=== PATIENT | female | born 1970 | race Caucasian/White ===

== ENCOUNTER 2017-06-14 13:06 | Inpatient (IN) | payer OTHER ==
--- NOTE | 2017-06-14 15:58 | C.PDOC ---
History Of Present Illness <Shira Hdz - Last Filed: 06/14/17 18:56> <Chana Nickerson - Last Filed: 06/14/17 20:03> PT WAS WAITING OUTSIDE IN WAITING AREA FOR 2.5 HRS TO BE SEEN. 46 y/o female,with no significant PMHx,presents to the ER complaining of LLQ pain for the past 4 days associated fever and chills, decrease in appetite. Patient reports, has an IUD and went to see her DISTRICT SERVICE MANAGER, Dr. Doris Johnson, today " I thought maybe something is wrong with it". As per pt, acute findings were reported by Dr. Johnson, but sent her to Ed for further evaluation. Otherwise, pt denies recent illness, cold sx, sore throat, cough, CP, SOB, dyspnea, diaphoresis, palpitation, V/D, UTi sx, hematuria, vaginal discharges or bleeding , back pain. Ambulate to ED for evaluation, appears in pain. (Shira Hdz) History Per: Patient History/Exam Limitations: no limitations Current Symptoms Are (Timing): Still Present Severity: Moderate Location Of Pain/Discomfort: LLQ <Shira Hdz - Last Filed: 06/14/17 18:56> <Chana Nickerson - Last Filed: 06/14/17 20:03> Time Seen by Provider: 06/14/17 15:56 Chief Complaint (Nursing): Abdominal Pain Past Medical History Reviewed: Historical Data, Nursing Documentation, Vital Signs - Medical History PMH: No Chronic Diseases Surgical History: Family History: States: No Known Family Hx - Social History Hx Alcohol Use: No Hx Substance Use: No - Immunization History Hx Tetanus Toxoid Vaccination: No Hx Influenza Vaccination: Yes Hx Pneumococcal Vaccination: Yes <Shira Hdz - Last Filed: 06/14/17 18:56> Vital Signs: Last Vital Signs Temp 97.9 F 06/14/17 18:43 Pulse 83 06/14/17 18:43 Resp 18 06/14/17 18:43 BP 105/70 06/14/17 18:43 Pulse Ox 100 06/14/17 18:56 Review Of Systems Except As Marked, All Systems Reviewed And Found Negative. Constitutional: Positive for: Fever, Chills Gastrointestinal: Positive for: Abdominal Pain <Shira Hdz - Last Filed: 06/14/17 18:56> Physical Exam - Physical Exam Appears: Well, Non-toxic, No Acute Distress Skin: Normal Color, Warm, No Rash Head: Normacephalic Eye(s): bilateral: PERRL Ear(s): Bilateral: Normal Nose: No Flaring, No Discharge Oral Mucosa: Moist, No Drooling Throat: No Erythema, No Drooling Neck: Trachea Midline, Supple Chest: Symmetrical Cardiovascular: Rhythm Regular Respiratory: No Decreased Breath Sounds, No Accessory Muscle Use, No Rales, No Rhonchi, No Stridor, No Wheezing Gastrointestinal/Abdominal: Soft, Tenderness (LLQ, mod), No Distention, No Guarding, No Rebound Back: No CVA Tenderness Extremity: Normal ROM, No Deformity, No Swelling Neurological/Psych: Oriented x3, Normal Speech, Normal Motor, Normal Sensation <Shira Hdz - Last Filed: 06/14/17 18:56> ED Course And Treatment - Laboratory Results Result Diagrams: 06/14/17 16:50 06/14/17 16:50 Lab Interpretation: Abnormal Urine POC: Negative O2 Sat by Pulse Oximetry: 100 (RA) Pulse Ox Interpretation: Normal Progress Note: Labs and CT-Abd/Pelv. ordered. Patient given IV fluids, Toradol IV, and Tylenol PO. Pt was OBS in ED for 2 hours and remained stable. Abd: (+ ) mod LLQ tenderness, (-) guaridng, (-) rebound. back: (-) CVA tenderness. Blood work review: CBC- mild leukocytosis with left shift. BMP- mild elevated LFT. UA- normal study. preg (-). Case discussed and sign out to , CT abd/pelvis- pending. <Shira Hdz - Last Filed: 06/14/17 18:56> - Laboratory Results Result Diagrams: 06/14/17 16:50 06/14/17 16:50 <Chana Nickerson - Last Filed: 06/14/17 20:03> Disposition - Disposition Disposition Time: 18:56 <Shira Hdz - Last Filed: 06/14/17 18:56> Discussed With DrRex: Doris A Johnson Doctor Will See Patient In The: Hospital <Chana Nickerson - Last Filed: 06/14/17 20:03> - Disposition Disposition: HOSPITALIZED Condition: FAIR Forms: [facility] ([place]) - Clinical Impression Clinical Impression: Abdominal pain, Fever, Tubo-ovarian abscess - PA / SENIOR ELECTRONICS TECHNICIAN / Resident Statement MD/DO has reviewed & agrees with the documentation as recorded. - Scribe Statement The provider has reviewed the documentation as recorded by the Scribe <Shira Hdz - Last Filed: 06/14/17 18:56> <Chana Nickerson - Last Filed: 06/14/17 20:03> - Scribe Statement Theodore Cast Provider Attestation All medical record entries made by the Scribe were at my direction and personally dictated by me. I have reviewed the chart and agree that the record accurately reflects my personal performance of the history, physical exam, medical decision making, and the department course for this patient. I have also personally directed, reviewed, and agree with the discharge instructions and disposition. (Shira Hdz) Physician Patient Turnover Patient Signed Over To: Chana Nickerson Handoff Comments: P: CT abd/pelvis, re-eval, dispo <Shira Hdz - Last Filed: 06/14/17 18:56>
[2017-06-14] MEDS ORDERED: Sodium Chloride 0.9% 1,000 ML IV ONE (16:20)
[2017-06-14] MEDS ORDERED: Sodium Chloride 0.9% 1,000 ML ONE (16:29)
[2017-06-14 16:32] LABS: HCG,QUALITATIVE URINE NEGATIVE (NEGATIVE)
[2017-06-14 16:41] LABS: SQUAMOUS EPITHIAL < 1 /hpf (0-5); URINE BACTERIA RARE (<OCC); URINE BILIRUBIN NEGATIVE (NEGATIVE); URINE BLOOD NEGATIVE (NEGATIVE); URINE CLARITY Clear (Clear); URINE COLOR Yellow (YELLOW); URINE GLUCOSE (UA) NORMAL (Normal); URINE LEUKOCYTE ESTERASE NEG Leu/uL (Negative); URINE NITRATE NEGATIVE (NEGATIVE); URINE PROTEIN 1+ mg/dL (NEGATIVE); URINE UROBILINOGEN NORMAL mg/dL (0.2-1.0)
[2017-06-14 16:53] LABS: BASO # 0.1 K/uL (0.0-0.2); BASO % 0.4 % (0.0-2.0); EOS # 0.1 K/uL (0.0-0.7); EOS % 0.4 % (0.0-4.0); HEMOGLOBIN 12.1 g/dL (11.0-16.0); LYMPH # 1.7 K/uL (1.0-4.3); LYMPH % 9.2 % (20.0-40.0); MEAN CELL VOLUME 81.4 fL (81.0-99.0); MEAN CORPUSCULAR HEMOGLOBIN 26.7 pg (27.0-31.0); MEAN CORPUSCULAR HGB CONC 32.8 g/dL (33.0-37.0); MEAN PLATELET VOLUME 7.3 fL (7.2-11.7); MONO # 1.2 K/uL (0.0-0.8); MONO % 6.7 % (0.0-10.0); NEUT # 15.1 K/uL (1.8-7.0); NEUT % 83.3 % (50.0-75.0); PLATELET COUNT 525 K/uL (130-400); RBC 4.52 Mil/uL (3.80-5.20); WHITE BLOOD COUNT 18.1 K/uL (4.8-10.8)
[2017-06-14 17:01] LABS: VENOUS BLOOD GAS BASE EXCESS 0.6 mmol/L (0.0-2.0); VENOUS BLOOD GAS PCO2 36 mmHg (40-60); VENOUS BLOOD GAS PO2 34 mm/Hg (30-55); VENOUS BLOOD PH 7.44 (7.32-7.43)
[2017-06-14 17:05] LABS: ALB/GLOB RATIO 0.8 (1.0-2.1); ALBUMIN 3.9 g/dL (3.5-5.0); ALT/SGPT 120 U/L (9-52); AST/SGOT 62 U/L (14-36); BLOOD UREA NITROGEN 8 mg/dL (7-17); CALCIUM 9.2 mg/dl (8.6-10.4); GFR AFRICAN-AMERICAN > 60; GFR NON-AFRICAN AMERICAN > 60; LIPASE 55 U/L (23-300)
[2017-06-14] MEDS ORDERED: Iohexol 300 100 ML IJ ONE (17:47)
[2017-06-14 17:50] LABS: EOSINOPHIL 1 % (0-4); LYMPHOCYTE 12 % (20-40); MONOCYTE 6 % (0-10); NEUTROPHIL 81 % (50-75); TOTAL CELLS COUNTED 100
[2017-06-14 17:51] LABS: PLATELET ESTIMATE INCREASED (NORMAL)
--- NOTE | 2017-06-14 19:45 | CT ---
EXAM: CT Abdomen and Pelvis With Intravenous Contrast EXAM DATE/TIME: Exam ordered 06/14/2017 4:20 PM CLINICAL HISTORY: 46 years old, female; Pain; Abdominal pain; Tenderness; Lower; Additional info: Abd pain TECHNIQUE: Axial computed tomography images of the abdomen and pelvis with intravenous contrast. All CT scans at this facility use one or more dose reduction techniques, viz.: automated exposure control; ma/kV adjustment per patient size (including targeted exams where dose is matched to indication; i.e. head); or iterative reconstruction technique. Coronal and sagittal reformatted images were created and reviewed. CONTRAST: 100 mL of OMNIPAQUE 300 administered intravenously. COMPARISON: No relevant prior studies available. FINDINGS: Lower thorax: No acute findings. ABDOMEN: Liver: Unremarkable. No mass. Gallbladder and bile ducts: Unremarkable. No calcified stones. No ductal dilation. Pancreas: Unremarkable. No mass. No ductal dilation. Spleen: Unremarkable. No splenomegaly. Adrenals: Unremarkable. No mass. Kidneys and ureters: Unremarkable. No solid mass. No hydronephrosis. Stomach and bowel: Unremarkable. No obstruction. No mucosal thickening. Appendix: No findings to suggest acute appendicitis. PELVIS: Bladder: Unremarkable. No mass. Reproductive: There is a multiloculated cystic mass noted in the left adnexa measuring 6.5 x 4.6 by 4.3 cm. There is mild stranding of the fat along the left lateral margin of the mass. The right ovary measures 2.6 x 1.4 by 2.1 cm. ABDOMEN and PELVIS: Intraperitoneal space: Unremarkable. No free air. No significant fluid collection. Bones/joints: No acute fracture. No dislocation. Soft tissues: There is an umbilical hernia measuring 2 cm containing fat. Vasculature: Unremarkable. No abdominal aortic aneurysm. Lymph nodes: Unremarkable. No enlarged lymph nodes. Tubes, lines and devices: There is an intrauterine device in place. IMPRESSION: 1. Multiloculated cystic mass noted within the left adnexa with a maximum diameter 6.5 cm. Differential diagnostic considerations include complex functional cyst, tubo-ovarian abscess or cystic neoplasm. Pelvic ultrasound might be considered for more definitive characterization. 2. Small umbilical hernia.
[2017-06-14] MEDS ORDERED: metroNIDAZOLE IV 500 mg/100 ml 500 MG/100 ML BAG IVPB STA (19:58)
[2017-06-14] MEDS ORDERED: metroNIDAZOLE IV 500 mg/100 ml 500 MG/100 ML BAG ONE (20:27)
--- NOTE | 2017-06-14 20:28 | CP.PCM.HP ---
History of Present Illness - History of Present Illness History of Present Illness: 46 y/o P2 LMP 04/28/2017 with retained IUD with severe abdominal/pelvic pain since Wednesday. Pt reports was seen by PCP and subsequently started on Cipro adn reports no improvement. pot was seen outpatient in my offier earlier today, first time with complaints of mainly LLQ abdomina pelvic pain, constant in nature, non raditaing with on going fevers x 2 weeks. Pt reports she felt flu like symptoms and said fever would come and go. Pt denies any chills, nause, vomiting, CP, SOB< dysuira, urgency, freuqency, AUB< vaginal dsicharge, itching , odor, constipation, diarrhea, sick contacts, weight gain or loss. Pt reports normal appetite. Upon in office examination, IUD noted to be in place with exam findings concerning for PID/TOA vs divertilciits. Upon ER Evaluation with noted to be febrile 102, WBC [address] scan consistent with 6.5cm multloculated cyst. Pt reports pain in LLQ improved with IV painmedicaion given in ER. 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, irreugualr, IUD x 5-6 years (pt unsure), bib hx of abnromal pap, fibroids, ovarian cyst, STI ge of Menarche 11/q 30 dayx 4-5 day duration PMH: denies PSH: CxS x2 MEDS: Ciprofloxacin SHX: Negative etoh/tobacco/Drugs NKDA Present on Admission - Present on Admission Any Indicators Present on Admission: No Review of Systems - Review of Systems All systems: reviewed and no additional remarkable complaints except Review of Systems: fever, abdominal pain see HPI Past Patient History - Past Medical History & Family History Past Medical History?: No Past Family History: Reviewed and not pertinent - Past Social History Smoking Status: Never Smoked Chewing Tobacco Use: No Cigar Use: No Alcohol: None - PSYCHIATRIC Hx Substance Use: No - SURGICAL HISTORY Hx Surgeries: Yes Hx Section: Yes Meds Allergies/Adverse Reactions: Allergies Allergy/AdvReac Type Severity Reaction Status Date / Time No Known Allergies Allergy Verified 06/14/17 14:56 Physical Exam - Constitutional Appears: Well, Non-toxic - Head Exam Head Exam: ATRAUMATIC, NORMAL INSPECTION - Eye Exam Eye Exam: EOMI, Normal appearance Pupil Exam: NORMAL ACCOMODATION - ENT Exam ENT Exam: Mucous Membranes Moist, Normal Exam - Neck Exam Neck exam: Positive for: Normal Inspection - Respiratory Exam Respiratory Exam: Clear to Auscultation Bilateral, NORMAL BREATHING PATTERN - Cardiovascular Exam Cardiovascular Exam: REGULAR RHYTHM, +S1, +S2 - GI/Abdominal Exam GI & Abdominal Exam: Normal Bowel Sounds, Soft Additional comments: TTP LLQ, no guarding no rigidity, no reboudn tenderness - Exam Additional comments: External Genitalia: no gross abnormalities Urethra: grossly normal Bladder; Non tender Vagina: no gross discharbe, no blood Cervix multiparous, short IUD string <0.5 cm from cervicl os, +CMT Uteurs; limited exam, non tender Adnexa: +adnexal tenderness b/l Anus/Perienum Grossly normal Results - Vital Signs Recent Vital Signs: Last Vital Signs Temp 97.9 F 06/14/17 18:43 Pulse 83 06/14/17 18:43 Resp 18 06/14/17 18:43 BP 105/70 06/14/17 18:43 Pulse Ox 100 06/14/17 18:56 Temp 102+ on intial er Evaluation s/p 975mg po Tyeonlono - Labs Result Diagrams: 06/14/17 16:50 06/14/17 16:50 Labs: Laboratory Results - last 24 hr 06/14/17 06/14/17 06/14/17 16:27 16:50 16:50 WBC 18.1 H RBC 4.52 Hgb 12.1 Hct 36.8 MCV 81.4 MCH 26.7 L MCHC 32.8 L RDW 13.0 Plt Count 525 H MPV 7.3 Neut % (Auto) 83.3 H Lymph % (Auto) 9.2 L [place] % (Auto) 6.7 Eos % (Auto) 0.4 Baso % (Auto) 0.4 Neut # (Auto) 15.1 H Lymph # (Auto) 1.7 [place] # (Auto) 1.2 H Eos # (Auto) 0.1 Baso # (Auto) 0.1 Neutrophils % (Manual) 81 H Lymphocytes % (Manual) 12 L Monocytes % (Manual) 6 Eosinophils % (Manual) 1 Platelet Estimate Increased H pO2 VBG pH VBG pCO2 VBG HCO3 VBG Total CO2 VBG O2 Sat (Calc) VBG Base Excess VBG Potassium Sodium 137 Chloride 96 L Glucose Lactate Potassium 4.2 Carbon Dioxide 25 Anion Gap 21 H BUN 8 Creatinine 0.7 Est GFR ( Amer) > 60 Est GFR (Non-Af Amer) > 60 Random Glucose 104 Calcium 9.2 Total Bilirubin 0.6 AST 62 H ALT 120 H Alkaline Phosphatase 162 H Total Protein 8.7 H Albumin 3.9 Globulin 4.9 H Albumin/Globulin Ratio 0.8 L Lipase 55 Venous Blood Potassium Urine Color Yellow Urine Clarity Clear Urine pH 7.0 Ur Specific Lynch 1.011 Urine Protein 1+ H Urine Glucose (UA) Normal Urine Ketones Negative Urine Blood Negative Urine Nitrate Negative Urine Bilirubin Negative Urine Urobilinogen Normal Ur Leukocyte Esterase Neg Urine WBC (Auto) 1 Urine RBC (Auto) 3 Ur Squamous Epith Cells < 1 Urine Bacteria Rare Urine HCG, Qual Negative Influenza Typ A,B (EIA) 06/14/17 06/14/17 16:50 16:51 WBC RBC Hgb Hct MCV MCH MCHC RDW Plt Count MPV Neut % (Auto) Lymph % (Auto) [place] % (Auto) Eos % (Auto) Baso % (Auto) Neut # (Auto) Lymph # (Auto) [place] # (Auto) Eos # (Auto) Baso # (Auto) Neutrophils % (Manual) Lymphocytes % (Manual) Monocytes % (Manual) Eosinophils % (Manual) Platelet Estimate pO2 34 VBG pH 7.44 H VBG pCO2 36 L VBG HCO3 24.6 VBG Total CO2 25.6 VBG O2 Sat (Calc) 68.9 H VBG Base Excess 0.6 VBG Potassium 4.0 Sodium 136.0 Chloride 105.0 Glucose 103 Lactate 1.0 Potassium Carbon Dioxide Anion Gap BUN Creatinine Est GFR ( Amer) Est GFR (Non-Af Amer) Random Glucose Calcium Total Bilirubin AST ALT Alkaline Phosphatase Total Protein Albumin Globulin Albumin/Globulin Ratio Lipase Venous Blood Potassium 4.0 Urine Color Urine Clarity Urine pH Ur Specific Lynch Urine Protein Urine Glucose (UA) Urine Ketones Urine Blood Urine Nitrate Urine Bilirubin Urine Urobilinogen Ur Leukocyte Esterase Urine WBC (Auto) Urine RBC (Auto) Ur Squamous Epith Cells Urine Bacteria Urine HCG, Qual Influenza Typ A,B (EIA) Negative for flu a/b - Imaging and Cardiology CT scan - pelvis Status: Report reviewed by me Additional comment: 6.5 cm adnexal multiloculated cyst Assessment & Plan (1) Abdominal pain Status: Acute (2) Fever Status: Acute (3) Tubo-ovarian abscess Assessment and Plan: 1. Admit to STUFFING MACHINE OPERATOR: Dr Doris Johnson 2. Diet: NPO after midnight, IVH: LR @ 125cch/r 3. TOA by CT Scan: For Pelvic TVUS, Gentamicin 80mg IV q 8 hour, Clindamycin 900mg IV q 8 hours 4. Labs: CBC, CMP, PT/INR, ABO, CRP, ESR 5. STI Panel: GC, CT, Trichomonas, Hepatitis B/C, HIV, RPR 6. Blood/Urine Cx, Flu negative 7. IR Consult: Possible IR guided drainage 8. Pain Management: Toradol 30mg IV q 6hr 9. VSS per protocol 10. DVT Prophylaxis LE scds 11. Activity: with assistance as needed Status: Acute
--- NOTE | 2017-06-14 22:11 | US ---
EXAM: US Pelvis Complete, Transabdominal and transvaginal EXAM DATE/TIME: Exam ordered 06/14/2017 8:12 PM CLINICAL HISTORY: 46 years old, female; Pain; Pelvic pain and other: Fever; Additional info: R/O toa vs ovarian cyst TECHNIQUE: Real-time transabdominal and transvaginal pelvic ultrasound (complete) with image documentation. COMPARISON: CT - ABD PELVIS IV CONTRAST ONLY 2017-06-14 19:10 FINDINGS: Uterus/cervix: The uterus measures 11 x 4.1 x 5 point 4 cm. and intrauterine device is present. The uterus measures 8.6 x 5.5 x 4.6 cm. An IUD is noted within the uterus. There is an anterior intramural fibroid measuring 9 mm in greatest diameter. Normal endometrial stripe thickness. Right ovary: Transabdominally, The right ovary is not seen as a separate structure. Transvaginally, The right ovary measures 3.1 x 2.2 x 3 cm and contains several subcentimeter follicles. Blood flow seen in the right ovary color Doppler examination. Left ovary: Transabdominally, The left ovary measures 6.3 x 4.6 x 6 cm. Blood flow is seen in left ovary on color Doppler examination. The ovary is heterogeneous in appearance with hypoechoic areas which correspond to the cystic changes suggested on CT scan. Transvaginally, There is a complex cystic mass noted within the left adnexa/left ovary measuring 6.7 x 4.3 x 5.2 cm.. MMultiple hypoechoic areas are noted within the mass. Vascularity is noted within the septations of the mass. The Dominant cystic component within the mass measures 3.1 x 3.2 x 3.1 cm.. The hypoechoic areas within the ovary contain a background of low level echoes with multiple punctate echogenic foci contained within. Is no shadowing. A calcification is noted within the ovarian parenchyma. On the cine images of the left ovary, there is marked through transmission of sound Free fluid: There is no free fluid fluid in the right upper quadrant. A trace amount of free fluid is seen in the posterior cul-de-sac. Bladder: Unremarkable as visualized. Wall is normal thickness for degree of distention. IMPRESSION: 1. Multiloculated cystic left ovarian mass. Differential diagnostic considerations include dermoid, endometrioma, mucinous cystadenoma. The appearance is not typical for tubo-ovarian abscess. If additional characterization is a required, an MRI would be helpful.
[2017-06-15 07:47] LABS: INR 1.3; PROTHROMBIN TIME 14.8 SECONDS (9.7-12.2)
[2017-06-15 08:08] LABS: ALB/GLOB RATIO 0.9 (1.0-2.1); ALBUMIN 3.3 g/dL (3.5-5.0); ALT/SGPT 92 U/L (9-52); AST/SGOT 41 U/L (14-36); BLOOD UREA NITROGEN 6 mg/dL (7-17); CALCIUM 8.5 mg/dl (8.6-10.4); GFR AFRICAN-AMERICAN > 60; GFR NON-AFRICAN AMERICAN > 60
[2017-06-15 08:20] LABS: HEPATITIS B SURFACE AG Negative (NEGATIVE)
[2017-06-15 08:26] LABS: HEPATITIS A IGM NEGATIVE (NEGATIVE); HEPATITIS B CORE AB NEGATIVE (NEGATIVE)
[2017-06-15 08:37] LABS: HEPATITIS C ANTIBODY NEGATIVE (NEGATIVE)
--- NOTE | 2017-06-15 09:18 | CP.PCM.PN ---
<Mattie Goodwin - Last Filed: 06/15/17 09:39> Subjective - Date & Time of Evaluation Date of Evaluation: 06/15/17 Time of Evaluation: 09:16 - Subjective Subjective: ELECTRICAL ENGINEERING DIRECTOR progress note: Patient seen and examined at bedside. Per nursing, no acute events overnight. Patient states that she is still having mild left sided pelvic that is improved from yesterday. Patient states that she feels cold. Offers no other complaints at this time. Denies headaches, dizziness, chest pain, palpitations, shortness of breath, urinary symptoms. Objective - Vital Signs/Intake and Output Vital Signs (last 24 hours): Temp Pulse Resp BP Pulse Ox 97.2 F L 97 H 20 107/67 100 06/15/17 00:03 06/15/17 00:03 06/15/17 00:03 06/15/17 00:03 06/15/17 00:03 - Medications Medications: Current Medications Gentamicin Sulfate 80 mg/ (Sodium Chloride) 102 mls @ 100 mls/hr IVPB Q8H [facility] Last Admin: 06/15/17 03:56 Dose: 100 mls/hr Clindamycin Phosphate 900 mg/ (Sodium Chloride) 106 mls @ 100 mls/hr IVPB Q8H [facility] Last Admin: 06/15/17 04:40 Dose: 100 mls/hr Ketorolac Tromethamine (Toradol) 30 mg IVP Q6H PRN PRN Reason: Pain, severe (8-10) Last Admin: 06/15/17 00:53 Dose: 30 mg - Labs Labs: 06/14/17 16:50 06/15/17 07:24 PT 14.8 SECONDS (9.7-12.2) H 06/15/17 07:24 INR 1.3 06/15/17 07:24 APTT 32 SECONDS (21-34) 06/15/17 07:24 - Constitutional Appears: Well, No Acute Distress - Head Exam Head Exam: ATRAUMATIC, NORMAL INSPECTION, NORMOCEPHALIC - Eye Exam Eye Exam: EOMI, Normal appearance - ENT Exam ENT Exam: Mucous Membranes Moist - Neck Exam Neck Exam: Full ROM - Respiratory Exam Respiratory Exam: NORMAL BREATHING PATTERN - Cardiovascular Exam Cardiovascular Exam: REGULAR RHYTHM - GI/Abdominal Exam GI & Abdominal Exam: Soft, Tenderness (Left sided pelvic tenderness) - Extremities Exam Extremities Exam: Full ROM, Normal Inspection - Back Exam Back Exam: NORMAL INSPECTION - Neurological Exam Neurological Exam: Alert, Awake, CN II-XII Intact, Normal Gait, Oriented x3 - Psychiatric Exam Psychiatric exam: Normal Affect, Normal Mood - Skin Skin Exam: Dry, Normal Color, Warm Assessment and Plan (1) Tubo-ovarian abscess Assessment & Plan: 1. Patient condition is stable 2. Last temp was 100.8, Tylenol 975 PO STAT 3. Leukocytosis: WBC 18.1 on admission, F/U am CBC 4. Transvaginal US showed Multiloculated cystic left ovarian mass (see full report) 5. IR consulted for possible drainage, Discussed case with Dr Prado, no IR intervention at this time 6. Antibiotics: Gentamicin 80mg IV Q8H and Clindamycin 900 IV Q8H 7. Plan to continue antibiotics for 24-48 hours and monitor patient clinically at this time 8. Pain control: Toradol 30mg IVP Q6H prn 9. Will place on regular diet 10. Tranaminitis: LFTs still mildly elevated but trending down; Hepatitis panel negative 11. F/U HIV, RPR, GC/CT, Blood cultures, urine cultures 12. Plan discussed with Dr Alex Goodwin DO PGY-1 Status: Acute (2) Abdominal pain Status: Acute (3) Fever Status: Acute <Doris Johnson - Last Filed: 06/15/17 17:28> Objective - Vital Signs/Intake and Output Vital Signs (last 24 hours): Temp Pulse Resp BP Pulse Ox 101.0 F H 92 H 18 126/66 99 06/15/17 16:09 06/15/17 15:47 06/15/17 15:47 06/15/17 15:47 06/15/17 15:47 - Medications Medications: Current Medications Acetaminophen (Tylenol 325mg Tab) 650 mg PO Q6 PRN PRN Reason: Fever >100.4 F Last Admin: 06/15/17 16:18 Dose: 650 mg Lactated Ringer's (Lactated Ringer's) 1,000 mls @ 100 mls/hr IV .Q10H DANIEL Piperacillin Sod/Tazobactam (Sod 3.375 gm/ Sodium Chloride) 100 mls @ 200 mls/ hr IVPB Q6H DANIEL Ketorolac Tromethamine (Toradol) 30 mg IVP Q6H PRN PRN Reason: Pain, severe (8-10) Last Admin: 06/15/17 00:53 Dose: 30 mg - Labs Labs: 06/15/17 11:32 06/15/17 07:24 PT 14.8 SECONDS (9.7-12.2) H 06/15/17 07:24 INR 1.3 06/15/17 07:24 APTT 32 SECONDS (21-34) 06/15/17 07:24 Assessment and Plan (1) Abdominal pain Status: Acute (2) Fever Status: Acute (3) Tubo-ovarian abscess Assessment & Plan: agree with above pt seen and examined Febrile 16:00 101 pt reprots pain well controlled but returns with fever, denies any nause, vomiting, toelrated regulard diet, ambuating denies any cp, sob, cough Labs: WBC: 18-->17 s/p IR Consult: non candidate for drainage Hepatitic panel negative, LFTS imrpoving Tyenol prn fever Change Antibiotcs to Hilary, For ID Consult Pt advised possibel OR intervention if no suqsuebent imrpovement For CXR f/u Blood / urine cx Status: Acute
[2017-06-15 11:41] LABS: BASO # 0.1 K/uL (0.0-0.2); BASO % 0.5 % (0.0-2.0); EOS # 0.1 K/uL (0.0-0.7); EOS % 0.6 % (0.0-4.0); HEMOGLOBIN 10.5 g/dL (11.0-16.0); LYMPH # 1.6 K/uL (1.0-4.3); LYMPH % 9.1 % (20.0-40.0); MEAN CELL VOLUME 82.3 fL (81.0-99.0); MEAN CORPUSCULAR HEMOGLOBIN 27.8 pg (27.0-31.0); MEAN CORPUSCULAR HGB CONC 33.8 g/dL (33.0-37.0); MEAN PLATELET VOLUME 7.5 fL (7.2-11.7); MONO # 1.3 K/uL (0.0-0.8); MONO % 7.5 % (0.0-10.0); NEUT % 82.3 % (50.0-75.0); PLATELET COUNT 434 K/uL (130-400); RBC 3.79 Mil/uL (3.80-5.20); RED CELL DISTRIBUTION WIDTH 13.1 % (11.5-14.5)
[2017-06-15 12:16] LABS: BANDS 14 % (0-2); EOSINOPHIL 1 % (0-4); LYMPHOCYTE 8 % (20-40); MONOCYTE 4 % (0-10); NEUTROPHIL 73 % (50-75); TOTAL CELLS COUNTED 100
[2017-06-15 12:17] LABS: PLATELET ESTIMATE SLIGHTLY INCREASED (NORMAL)
--- NOTE | 2017-06-15 18:27 | RAD ---
HISTORY: cough COMPARISON: None available. TECHNIQUE: Chest, one view. FINDINGS: Examination limited by habitus. LUNGS: No focal consolidation. Probable tiny calcified granuloma, right lung base. Please note that chest x-ray has limited sensitivity for the detection of pulmonary masses. PLEURA: No significant pleural effusion identified. No definite pneumothorax . CARDIOVASCULAR: Heart size appears within normal limits. OSSEOUS STRUCTURES: No acute osseous abnormality identified. VISUALIZED UPPER ABDOMEN: Mild elevation of the right hemidiaphragm. OTHER FINDINGS: None. IMPRESSION: No focal consolidation identified.
[2017-06-15] MEDS: Piperacill/Tazo 4.5gm in Dex 4.5 GM/100 ML BAG IVPB SCH (18:56)
[2017-06-16] MEDS: Piperacill/Tazo 4.5gm in Dex 4.5 GM/100 ML BAG IVPB SCH ×2 (03:05→11:45)
[2017-06-16] MEDS: Lactated Ringer's 1,000 ML IV SCH ×2 (03:06→14:28)
--- NOTE | 2017-06-16 08:13 | CP.PCM.PN ---
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 Patient spiked a 102.2 fever this morning. She states that the abdominal pain that she had prior to arrival is starting to come back. Pain is located in the LLQ, left pelvic area. At this time, pain scale is 6/10. Offers no other complaints at this time. Denies headaches, dizziness, cp, palpitations, sob, urinary symptoms. Objective - Vital Signs/Intake and Output Vital Signs (last 24 hours): Temp Pulse Resp BP Pulse Ox 100.2 F H 86 20 97/63 L 98 06/16/17 03:30 06/16/17 03:30 06/16/17 03:30 06/16/17 00:00 06/16/17 00:00 - Medications Medications: Current Medications Acetaminophen (Tylenol 325mg Tab) 650 mg PO Q6 PRN PRN Reason: Fever >100.4 F Last Admin: 06/15/17 22:19 Dose: 650 mg Lactated Ringer's (Lactated Ringer's) 1,000 mls @ 100 mls/hr IV .Q10H [facility] Last Admin: 06/16/17 03:06 Dose: 100 mls/hr Piperacillin Sod/Tazobactam Sod (Zosyn 4.5 Gm Iv Premix) 4.5 gm in 100 mls @ 100 mls/hr IVPB Q8H [facility] Last Admin: 06/16/17 03:05 Dose: 100 mls/hr Ketorolac Tromethamine (Toradol) 30 mg IVP Q6H PRN PRN Reason: Pain, severe (8-10) Last Admin: 06/15/17 00:53 Dose: 30 mg - Labs Labs: 06/15/17 11:32 06/15/17 07:24 PT 14.8 SECONDS (9.7-12.2) H 06/15/17 07:24 INR 1.3 06/15/17 07:24 APTT 32 SECONDS (21-34) 06/15/17 07:24 - Constitutional Appears: No Acute Distress - Head Exam Head Exam: ATRAUMATIC, NORMAL INSPECTION, NORMOCEPHALIC - Eye Exam Eye Exam: EOMI, Normal appearance - ENT Exam ENT Exam: Mucous Membranes Moist - Neck Exam Neck Exam: Full ROM - Respiratory Exam Respiratory Exam: NORMAL BREATHING PATTERN - Cardiovascular Exam Cardiovascular Exam: REGULAR RHYTHM - GI/Abdominal Exam GI & Abdominal Exam: Soft, Tenderness (LLQ tenderness) - Extremities Exam Extremities Exam: Normal Inspection - Neurological Exam Neurological Exam: Alert, Awake, Oriented x3 - Psychiatric Exam Psychiatric exam: Normal Affect, Normal Mood - Skin Skin Exam: Dry, Normal Color, Warm Assessment and Plan (1) Tubo-ovarian abscess Assessment & Plan: -Last temp was 102.2, tylenol was given -Leukocytosis: 17.0 -> 17.4 -Antibiotics: Zosyn 4.75mg IV Q8H -Infectious Disease consulted, daron Taylor -CXR showed no focal consolidation -Blood cultures negative for 24 hours, urine cultures negative - Status: Acute (2) Abdominal pain Status: Acute (3) Fever Status: Acute <Doris Johnson - Last Filed: 06/16/17 09:07> Objective - Vital Signs/Intake and Output Vital Signs (last 24 hours): Temp Pulse Resp BP Pulse Ox 102.2 F H 86 20 97/63 L 98 06/16/17 08:00 06/16/17 03:30 06/16/17 03:30 06/16/17 00:00 06/16/17 00:00 - Medications Medications: Current Medications Acetaminophen (Tylenol 325mg Tab) 650 mg PO Q6 PRN PRN Reason: Fever >100.4 F Last Admin: 06/16/17 08:00 Dose: 650 mg Lactated Ringer's (Lactated Ringer's) 1,000 mls @ 100 mls/hr IV .Q10H [facility] Last Admin: 06/16/17 03:06 Dose: 100 mls/hr Piperacillin Sod/Tazobactam Sod (Zosyn 4.5 Gm Iv Premix) 4.5 gm in 100 mls @ 100 mls/hr IVPB Q8H [facility] Last Admin: 06/16/17 03:05 Dose: 100 mls/hr Ketorolac Tromethamine (Toradol) 30 mg IVP Q6H PRN PRN Reason: Pain, severe (8-10) Last Admin: 02/27/18 00:53 Dose: 30 mg - Labs Labs: 06/16/17 08:35 06/15/17 07:24 PT 14.8 SECONDS (9.7-12.2) H 06/15/17 07:24 INR 1.3 06/15/17 07:24 APTT 32 SECONDS (21-34) 06/15/17 07:24 Assessment and Plan (1) Abdominal pain Status: Acute (2) Fever Status: Acute (3) Tubo-ovarian abscess Assessment & Plan: agreewith above pt seen and evaluated with spiking temperatue despite changing IV antibiotics pt with LLQ pain on and off , improves with IV pain medicaion Blood/Urine Cx Negative CXR negative Plan ID Consult Pending Possible OR exploration AM labs Tyenol prn fever Pain Managment Status: Acute
[2017-06-16 08:46] LABS: BASO # 0.1 K/uL (0.0-0.2); BASO % 0.6 % (0.0-2.0); EOS # 0.1 K/uL (0.0-0.7); EOS % 0.4 % (0.0-4.0); HEMOGLOBIN 12.2 g/dL (11.0-16.0); LYMPH # 1.9 K/uL (1.0-4.3); LYMPH % 10.7 % (20.0-40.0); MEAN CELL VOLUME 81.2 fL (81.0-99.0); MEAN CORPUSCULAR HEMOGLOBIN 27.2 pg (27.0-31.0); MEAN CORPUSCULAR HGB CONC 33.4 g/dL (33.0-37.0); MEAN PLATELET VOLUME 7.4 fL (7.2-11.7); MONO # 1.2 K/uL (0.0-0.8); MONO % 6.7 % (0.0-10.0); NEUT # 14.2 K/uL (1.8-7.0); NEUT % 81.6 % (50.0-75.0); RBC 4.49 Mil/uL (3.80-5.20); WHITE BLOOD COUNT 17.4 K/uL (4.8-10.8)
[2017-06-16 09:07] LABS: ALB/GLOB RATIO 0.8 (1.0-2.1); ALBUMIN 3.4 g/dL (3.5-5.0); ALT/SGPT 79 U/L (9-52); AST/SGOT 31 U/L (14-36); BLOOD UREA NITROGEN 4 mg/dL (7-17); CALCIUM 8.7 mg/dl (8.6-10.4); GFR AFRICAN-AMERICAN > 60; GFR NON-AFRICAN AMERICAN > 60
--- NOTE | 2017-06-16 17:33 | CP.PCM.CON ---
History of Present Illness - History of Present Illness History of Present Illness: 46 y/o P2 LMP 04/28/2017 with retained IUD with severe abdominal/pelvic pain since Antolin. She was seen by PCP Dr Roche and subsequently started on Cipro but reports no improvement. Patient was then referred to her [employer]ORER with complaints of mainly LLQ abdominal pelvic pain with on going fevers x 2 weeks. Pt reports she felt flu like symptoms and said fever would come and go. Upon ER Evaluation with noted to be febrile 102, WBC [address] scan consistent with 6.5cm multloculated cyst. 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, irreugualar, IUD x 5-6 years (pt unsure), PMH: denies PSH: CxS x2 SHX: Negative etoh/tobacco/Drugs 2 children all reported healthy / monogomous relationship NKDA Review of Systems - Constitutional Constitutional: As Per HPI, Anorexia, Chills, Fever - EENT Eyes: absent: As Per HPI, Blind Spots, Blurred Vision, Change in Vision, Decreased Night Vision, Diplopia, Discharge, Dry Eye, Exophthalmos, Floaters, Irritation, Itchy Eyes, Loss of Peripheral Vision, Pain, Photophobia, Requires Corrective Lenses, Sees Flashes, Spots in Vision, Tunnel Vision, Other Visual Disturbances, Loss of Vision, Other Ears: absent: As Per HPI, Decreased Hearing, Ear Discharge, Ear Pain, Tinnitus, Abnormal Hearing, Disequilibrium, Dizziness, Other Nose/Mouth/Throat: absent: As Per HPI, Epistaxis, Nasal Congestion, Nasal Discharge, Nasal Obstruction, Nasal Trauma, Nose Pain, Post Nasal Drip, Sinus Pain, Sinus Pressure, Bleeding Gums, Change in Voice, Dental Pain, Dry Mouth, Dysphagia, Halitosis, Hoarsness, Lip Swelling, Mouth Lesions, Mouth Pain, Odynophagia, Sore Throat, Throat Swelling, Tongue Swelling, Facial Pain, Neck Pain, Neck Mass, Other - Breasts Breasts: absent: As Per HPI, Change in Shape, Mass, Pain, Nipple Discharge, Nipple Inversion, Skin Changes, Swelling, Other - Cardiovascular Cardiovascular: absent: As Per HPI, Acrocyanosis, Chest Pain, Chest Pain at Rest , Chest Pain with Activity, Claudication, Diaphoresis, Dyspnea, Dyspnea on Exertion, Edema, Irregular Heart Rhythm, Pain Radiating to Arm/Neck/Jaw, Leg Edema, Leg Ulcers, Lightheadedness, Orthopnea, Palpitations, Paroxysmal Nocturnal Dyspnea, Pedal Edema, Radiating Pain, Rapid Heart Rate, Slow Heart Rate, Syncope, Other - Gastrointestinal Gastrointestinal: absent: As Per HPI, Abdominal Pain, Belching, Bloating, Change in Bowel Habits, Change in Stool Character, Coffee Ground Emesis, Constipation, Cramping, Diarrhea, Dyspepsia, Dysphagia, Early Satiety, Excessive Flatus, Fecal Incontinence, Heartburn, Hematemesis, Hematochezia, Loose Stools, Melena, Nausea, Odynophagia, Temesmus, Vomiting, Other - Genitourinary Genitourinary: As Per HPI - Reproductive: Female Reproductive:Female: As Per HPI - Menstruation Menstruation: As Per HPI - Musculoskeletal Musculoskeletal: absent: As Per HPI, Abnormal Gait, Arthralgias, Atrophy, Back Pain, Deformity, Joint Swelling, Limited Range of Motion, Loss of Height, Muscle Cramps, Muscle Weakness, Myalgias, Neck Pain, Numbness, Radiating Pain into Limb, Stiffness, Tingling, Other - Integumentary Integumentary: absent: As Per HPI, Acne, Alopecia, Bleeding Lesions, Change in Hair, Change in Nails, Change in Pigmentation, Changing Lesions, Dry Skin, Erythema, Furuncle, Hirsutism, Lesions, New Lesions, Non-Healing Lesions, Photosensitivity, Pruritus, Rash, Skin Pain, Skin Ulcer, Sores, Striae, Swelling , Unusual Bruising, Wounds, Jaundice, Other - Neurological Neurological: absent: As Per HPI, Abnormal Gait, Abnormal Hearing, Abnormal Movements, Abnormal Speech, Behavioral Changes, Burning Sensations, Confusion, Convulsions, Disequilibrium, Dizziness, Numbness, Focal Weakness, Frequent Falls , Headaches, Lack of Coordination, Loss of Vision, Memory Loss, Paresthesias, Radicular Pain, Restless Legs, Sensory Deficit, Syncope, Tingling, Tremor, Vertigo, Weakness, Other Visual Disturbances, Other - Psychiatric Psychiatric: absent: As Per HPI, Abnormal Sleep Pattern, Anhedonia, Anxiety, Auditory Hallucinations, Behavioral Changes, Change in Appetite, Change in Libido, Confusion, Depression, Difficulty Concentrating, Hallucinations, Homicidal Ideation, Hopelessness, Irritability, Memory Loss, Mood Swings, Panic Attacks, Paranoia, Suicidal Ideation, Visual Hallucinations, Tactile Hallucinations, Other - Endocrine Endocrine: absent: As Per HPI, Change in Body Appearance, Change in Libido, Cold Intolorance, Deepening of Voice, Excessive Sweating, Fatigue, Flushing, Heat Intolorance, Increase in Ring/Shoe/Hat Size, Palpitations, Polydipsia, Polyphagia, Polyuria, Other - Hematologic/Lymphatic Hematologic: absent: As Per HPI, Easy Bleeding, Easy Bruising, Lymphadenopathy, Other Past Patient History - Past Medical History & Family History Past Medical History?: No - Past Social History Smoking Status: Never Smoked Chewing Tobacco Use: No Cigar Use: No Alcohol: None - MUSCULOSKELETAL/RHEUMATOLOGICAL Hx Falls: No - PSYCHIATRIC Hx Substance Use: No - SURGICAL HISTORY Hx Surgeries: Yes Hx Section: Yes Meds Allergies/Adverse Reactions: Allergies Allergy/AdvReac Type Severity Reaction Status Date / Time No Known Allergies Allergy Verified 06/14/17 14:56 - Medications Medications: Current Medications Acetaminophen (Tylenol 325mg Tab) 650 mg PO Q6 PRN PRN Reason: Fever >100.4 F Last Admin: 06/16/17 16:10 Dose: 650 mg Lactated Ringer's (Lactated Ringer's) 1,000 mls @ 100 mls/hr IV .Q10H [facility] Last Admin: 06/16/17 14:28 Dose: 100 mls/hr Piperacillin Sod/Tazobactam Sod (Zosyn 4.5 Gm Iv Premix) 4.5 gm in 100 mls @ 100 mls/hr IVPB Q8H [facility] Last Admin: 06/16/17 11:45 Dose: 100 mls/hr Ketorolac Tromethamine (Toradol) 30 mg IVP Q6H PRN PRN Reason: Pain, severe (8-10) Last Admin: 06/16/17 16:17 Dose: 30 mg Physical Exam - Constitutional Appears: Non-toxic, Chronically Ill - Head Exam Head Exam: NORMOCEPHALIC - Eye Exam Eye Exam: PERRL. absent: Scleral icterus - ENT Exam ENT Exam: Mucous Membranes Dry - Neck Exam Neck exam: Negative for: Lymphadenopathy - Respiratory Exam Respiratory Exam: Decreased Breath Sounds, Clear to Auscultation Bilateral - Cardiovascular Exam Cardiovascular Exam: REGULAR RHYTHM, +S1, +S2 - GI/Abdominal Exam GI & Abdominal Exam: Diminished Bowel Sounds, Distended, Guarding, Soft, Tenderness. absent: Organomegaly, Pulsatile Mass, Rebound, Rigid - Rectal Exam Rectal Exam: Deferred - Exam Exam: NORMAL INSPECTION - Extremities Exam Extremities exam: Negative for: pedal edema - Back Exam Back exam: absent: CVA tenderness (L), CVA tenderness (R) - Neurological Exam Neurological exam: Alert, CN II-XII Intact, Oriented x3, Reflexes Normal - Psychiatric Exam Psychiatric exam: Normal Mood - Skin Skin Exam: Dry, Intact Results - Vital Signs Recent Vital Signs: Last Vital Signs Temp 101.2 F H 06/16/17 16:10 Pulse 86 06/16/17 03:30 Resp 20 06/16/17 03:30 BP 97/63 L 06/16/17 00:00 Pulse Ox 98 06/16/17 00:00 - Labs Result Diagrams: 06/16/17 08:35 06/16/17 08:35 Labs: Laboratory Results - last 24 hr 06/15/17 06/16/17 06/16/17 07:24 08:35 08:35 WBC 17.4 H RBC 4.49 Hgb 12.2 Hct 36.5 MCV 81.2 MCH 27.2 MCHC 33.4 RDW 13.0 Plt Count 488 H MPV 7.4 Neut % (Auto) 81.6 H Lymph % (Auto) 10.7 L Waldo % (Auto) 6.7 Eos % (Auto) 0.4 Baso % (Auto) 0.6 Neut # (Auto) 14.2 H Lymph # (Auto) 1.9 Waldo # (Auto) 1.2 H Eos # (Auto) 0.1 Baso # (Auto) 0.1 Sodium 138 Potassium 4.0 Chloride 99 Carbon Dioxide 25 Anion Gap 18 BUN 4 L Creatinine 0.7 Est GFR ( Amer) > 60 Est GFR (Non-Af Amer) > 60 Random Glucose 139 H Calcium 8.7 Total Bilirubin 0.6 AST 31 ALT 79 H Alkaline Phosphatase 141 H Total Protein 7.4 Albumin 3.4 L Globulin 4.1 H Albumin/Globulin Ratio 0.8 L HIV 1&2 Ag/Ab, 4th Gen Nonreactive Assessment & Plan (1) Abdominal pain Status: Acute (2) Fever Status: Acute (3) Tubo-ovarian abscess Status: Acute - Assessment and Plan (Free Text) Assessment: fever despite PO and IV antibiotics with CT/ US + for left ovarian cyst which is multiloculated PCR for chlamydia/ gonorrhea pending Will add Mefoxin and Doxy May need OR drainage / Bx Plan: discussed with RN and residents
[2017-06-16] MEDS: cefOXitin 2 GM in Sodium Chloride 0.9% 100 ML IVPB SCH ×2 (20:55→21:20)
[2017-06-16] MEDS ORDERED: Lactated Ringer's 1,000 ML IV ONE (23:14)
[2017-06-17] MEDS: cefOXitin 2 GM in Sodium Chloride 0.9% 100 ML IVPB SCH ×3 (03:32→19:00)
[2017-06-17 08:11] LABS: BASO # 0.1 K/uL (0.0-0.2); BASO % 0.4 % (0.0-2.0); EOS # 0.1 K/uL (0.0-0.7); EOS % 0.5 % (0.0-4.0); LYMPH # 1.8 K/uL (1.0-4.3); LYMPH % 10.1 % (20.0-40.0); MEAN CORPUSCULAR HEMOGLOBIN 27.3 pg (27.0-31.0); MEAN CORPUSCULAR HGB CONC 33.3 g/dL (33.0-37.0); MEAN PLATELET VOLUME 7.4 fL (7.2-11.7); MONO # 1.6 K/uL (0.0-0.8); MONO % 8.7 % (0.0-10.0); NEUT # 14.7 K/uL (1.8-7.0); NEUT % 80.3 % (50.0-75.0); RBC 4.02 Mil/uL (3.80-5.20); RED CELL DISTRIBUTION WIDTH 13.1 % (11.5-14.5); WHITE BLOOD COUNT 18.3 K/uL (4.8-10.8)
[2017-06-17 08:20] LABS: INR 1.5; PROTHROMBIN TIME 17.2 SECONDS (9.7-12.2)
--- NOTE | 2017-06-17 09:20 | CP.PCM.PN ---
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 Per nursing, patient is still spiking fevers, Tmax 102.4. She is currently afebrile after tylenol administration. Patient states that abdominal pain has improved. Offers no other complaints at this time. Denies headaches, dizziness, cp, palpitations, sob, urinary symptoms. Objective - Vital Signs/Intake and Output Vital Signs (last 24 hours): Temp Pulse Resp BP Pulse Ox 100.1 F H 95 H 20 99/68 L 99 06/17/17 00:00 06/17/17 00:00 06/17/17 00:00 06/17/17 00:00 06/17/17 00:00 Intake and Output: 06/17/17 06/17/17 06:59 18:59 Intake Total 620 Balance 620 - Medications Medications: Current Medications Acetaminophen (Tylenol 325mg Tab) 650 mg PO Q6 PRN PRN Reason: Fever >100.4 F Last Admin: 06/17/17 03:30 Dose: 650 mg Cefoxitin Sodium 2 gm/ Sodium (Chloride) 100 mls @ 50 mls/hr IVPB Q8H [facility] Last Admin: 06/17/17 03:32 Dose: 50 mls/hr Doxycycline Hyclate 100 mg/ (Sodium Chloride) 100 mls @ 100 mls/hr IVPB Q12H [facility] Last Admin: 06/17/17 06:20 Dose: 100 mls/hr Ketorolac Tromethamine (Toradol) 30 mg IVP Q6H PRN PRN Reason: Pain, severe (8-10) Last Admin: 06/16/17 16:17 Dose: 30 mg - Labs Labs: 06/17/17 08:00 06/16/17 08:35 PT 17.2 SECONDS (9.7-12.2) H 06/17/17 08:00 INR 1.5 06/17/17 08:00 APTT 32 SECONDS (21-34) 06/15/17 07:24 - Constitutional Appears: No Acute Distress - Head Exam Head Exam: ATRAUMATIC, NORMAL INSPECTION - Eye Exam Eye Exam: EOMI, Normal appearance - ENT Exam ENT Exam: Mucous Membranes Moist - Neck Exam Neck Exam: Full ROM - Respiratory Exam Respiratory Exam: NORMAL BREATHING PATTERN - Cardiovascular Exam Cardiovascular Exam: REGULAR RHYTHM - GI/Abdominal Exam GI & Abdominal Exam: Soft, Tenderness - Back Exam Back Exam: NORMAL INSPECTION - Neurological Exam Neurological Exam: Alert, Awake, Oriented x3 - Psychiatric Exam Psychiatric exam: Normal Affect, Normal Mood - Skin Skin Exam: Normal Color, Warm Assessment and Plan (1) Tubo-ovarian abscess Assessment & Plan: -Tmax 102.4, currently afebrile, will continue Tylenol prn fever -Leukocytosis increasing 17.4 -> 18.3 today -Antibiotics: Cefoxitin 2gm Q8H and Doxycycline 100mg Q12H -ID on consult, daron Jaquez -Blood cultures showing no growth x 48 hours, urine cultures no growth -GC/CT pending -Transaminitis improving -Patient NPO for OR today -Consents to be signed -Plan discussed with Dr Alex Goodwin DO PGY-1 Status: Acute (2) Abdominal pain Status: Acute (3) Fever Status: Acute <Doris Johnson - Last Filed: 06/17/17 12:35> Objective - Vital Signs/Intake and Output Vital Signs (last 24 hours): Temp Pulse Resp BP Pulse Ox 100.1 F H 95 H 20 99/68 L 99 06/17/17 00:00 06/17/17 00:00 06/17/17 00:00 06/17/17 00:00 06/17/17 00:00 Intake and Output: 06/17/17 06/17/17 06:59 18:59 Intake Total 620 Balance 620 - Medications Medications: Current Medications Acetaminophen (Tylenol 325mg Tab) 650 mg PO Q6 PRN PRN Reason: Fever >100.4 F Last Admin: 06/17/17 03:30 Dose: 650 mg Cefoxitin Sodium 2 gm/ Sodium (Chloride) 100 mls @ 50 mls/hr IVPB Q8H [facility] Last Admin: 06/17/17 11:15 Dose: 50 mls/hr Doxycycline Hyclate 100 mg/ (Sodium Chloride) 100 mls @ 100 mls/hr IVPB Q12H [facility] Last Admin: 06/17/17 06:20 Dose: 100 mls/hr Ketorolac Tromethamine (Toradol) 30 mg IVP Q6H PRN PRN Reason: Pain, severe (8-10) Last Admin: 06/17/17 09:37 Dose: 30 mg - Labs Labs: 06/17/17 08:00 06/17/17 08:00 PT 17.2 SECONDS (9.7-12.2) H 06/17/17 08:00 INR 1.5 06/17/17 08:00 APTT 32 SECONDS (21-34) 06/15/17 07:24 Assessment and Plan (1) Abdominal pain Status: Acute (2) Fever Status: Acute (3) Tubo-ovarian abscess Assessment & Plan: INPATINT PRE OP NOTE pt seen and examiend with reucrretn fevers despite ID evaluati an additon of anbitics Temp 101+ PE abd: soft, TTP LLQ, no ugarduing, no rebund tendner, nor igits LABS: WBC 18 PLAN:FOR OEX LAP , I+D REMOVAL OF TOA, IUD REMOVAL Status: Acute
[2017-06-17 09:22] LABS: ALB/GLOB RATIO 0.8 (1.0-2.1); ALBUMIN 3.3 g/dL (3.5-5.0); ALT/SGPT 56 U/L (9-52); AST/SGOT 30 U/L (14-36); BLOOD UREA NITROGEN 7 mg/dL (7-17); CALCIUM 8.9 mg/dl (8.6-10.4); GFR AFRICAN-AMERICAN > 60; GFR NON-AFRICAN AMERICAN > 60
[2017-06-17] MEDS ORDERED: Propofol 10 mg/ml Inj (20 ML) ONE (13:06)
[2017-06-17] MEDS ORDERED: Midazolam 2 MG/2 ML VIAL ONE (13:06)
[2017-06-17] MEDS ORDERED: Succinylcholine Chloride 20 mg/ml Syr (5 ml) IV ONE (13:52)
[2017-06-17] MEDS ORDERED: Rocuronium 10 mg/ml (5 ml) ONE (13:52)
[2017-06-17] MEDS ORDERED: Phenylephrine 10 mg/ml Inj ONE (13:52)
[2017-06-17] MEDS ORDERED: Morphine 4 MG/ML VIAL ONE (14:47)
[2017-06-17] MEDS ORDERED: HYDROmorphone 0.5 mg/0.5 ml ISec IVP PRN (15:02)
--- NOTE | 2017-06-17 15:34 | PCM.SURG1 ---
Surgeon's Initial Post Op Note - Surgeon's Notes Surgeon: Doris Johnson MD Smoke Jumper Supervisor: Shahid Donahue MD Type of Anesthesia: General Endo Pre-Operative Diagnosis: Tuboovarian abscess, pelvic inflammaotry disease, pelvic pain, recurrent fevers, retained intrauteirne device Operative Findings: 8-10 week size uteurs, normal right fallopian tube and ovary , enlarged left ovary adherent to left fallopian tuel, cystic, multiloculated with pustrualr fluid, adherent to left side wall and uterine body and posterior to colon. Multiple adhesins lysed carefully to freely mobilize TOA. Adhesios of bowel to anterior abodmina awall and fascia carefully . Upon entry blood tinged perientonal fluid noted and collected for cytolgoy and culture in [facility] ot culture of TOA. IUD successfully removed with IUD extractor and hook. Post-Operative Diagnosis: Same as above Operation Performed: Exploratory laparatomy, exicison of tuboovarian abscess with left salpingoopehrectomy, lysis of adhesins, removal of retained intrauterine device/forgein body Specimen/Specimens Removed: peritoneal culutre and cell washing for cytology, TOA culture, Intrauterine device Estimated Blood Loss: EBL {In ML}: 300 Blood Products Given: N/A Post-Op Condition: Good (valdivia cathether) Date of Surgery/Procedure: 06/17/17 Time of Surgery/Procedure: 13:30
--- NOTE | 2017-06-17 18:42 | CP.PCM.PN ---
Subjective - Date & Time of Evaluation Date of Evaluation: 06/17/17 Time of Evaluation: 08:00 - Subjective Subjective: afeb s/p OR for TOA and retained IUD' await cultures Objective - Vital Signs/Intake and Output Vital Signs (last 24 hours): Temp Pulse Resp BP Pulse Ox 99.9 F H 99 H 23 106/52 L 100 06/17/17 16:15 06/17/17 16:15 06/17/17 16:15 06/17/17 16:15 06/17/17 16:15 Intake and Output: 06/17/17 06/17/17 06:59 18:59 Intake Total 620 2150 Output Total 350 Balance 620 1800 - Medications Medications: Current Medications Acetaminophen (Tylenol 325mg Tab) 650 mg PO Q6 PRN PRN Reason: Fever >100.4 F Last Admin: 06/17/17 03:30 Dose: 650 mg Cefoxitin Sodium 2 gm/ Sodium (Chloride) 100 mls @ 50 mls/hr IVPB Q8H [facility] Last Admin: 06/17/17 11:15 Dose: 50 mls/hr Doxycycline Hyclate 100 mg/ (Sodium Chloride) 100 mls @ 100 mls/hr IVPB Q12H [facility] Last Admin: 06/17/17 18:03 Dose: 100 mls/hr Ketorolac Tromethamine (Toradol) 30 mg IVP Q6H PRN PRN Reason: Pain, severe (8-10) Last Admin: 06/17/17 09:37 Dose: 30 mg - Labs Labs: 06/17/17 08:00 06/17/17 08:00 PT 17.2 SECONDS (9.7-12.2) H 06/17/17 08:00 INR 1.5 06/17/17 08:00 APTT 32 SECONDS (21-34) 06/15/17 07:24 - Constitutional Appears: Non-toxic, Chronically Ill - Head Exam Head Exam: NORMOCEPHALIC - Eye Exam Eye Exam: PERRL - ENT Exam ENT Exam: Mucous Membranes Dry - Neck Exam Neck Exam: absent: Lymphadenopathy - Respiratory Exam Respiratory Exam: Decreased Breath Sounds, Clear to Ausculation Bilateral - Cardiovascular Exam Cardiovascular Exam: REGULAR RHYTHM - GI/Abdominal Exam GI & Abdominal Exam: Distended, Soft. absent: Tenderness - Rectal Exam Rectal Exam: Deferred - Exam Exam: NORMAL INSPECTION - Extremities Exam Extremities Exam: absent: Pedal Edema - Back Exam Back Exam: absent: CVA tenderness (L), CVA tenderness (R) - Neurological Exam Neurological Exam: Alert, Awake, Oriented x3 Assessment and Plan (1) Abdominal pain Status: Acute (2) Fever Status: Acute (3) Tubo-ovarian abscess Status: Acute - Assessment and Plan (Free Text) Assessment: cont iv RX/ wound care
[2017-06-17 20:17] LABS: BASO # 0.1 K/uL (0.0-0.2); BASO % 0.6 % (0.0-2.0); EOS % 0.1 % (0.0-4.0); LYMPH # 1.5 K/uL (1.0-4.3); LYMPH % 9.3 % (20.0-40.0); MEAN CELL VOLUME 81.3 fL (81.0-99.0); MEAN CORPUSCULAR HEMOGLOBIN 27.1 pg (27.0-31.0); MEAN CORPUSCULAR HGB CONC 33.4 g/dL (33.0-37.0); MEAN PLATELET VOLUME 7.2 fL (7.2-11.7); MONO # 0.5 K/uL (0.0-0.8); MONO % 3.5 % (0.0-10.0); NEUT # 13.6 K/uL (1.8-7.0); NEUT % 86.5 % (50.0-75.0); PLATELET COUNT 475 K/uL (130-400); RED CELL DISTRIBUTION WIDTH 13.5 % (11.5-14.5); WHITE BLOOD COUNT 15.8 K/uL (4.8-10.8)
[2017-06-17 20:35] LABS: ALB/GLOB RATIO 0.8 (1.0-2.1); ALBUMIN 2.8 g/dL (3.5-5.0); ALT/SGPT 59 U/L (9-52); AST/SGOT 35 U/L (14-36); BLOOD UREA NITROGEN 5 mg/dL (7-17); CALCIUM 8.1 mg/dl (8.6-10.4); GFR AFRICAN-AMERICAN > 60; GFR NON-AFRICAN AMERICAN > 60
[2017-06-17 20:56] LABS: BANDS 5 % (0-2); LYMPHOCYTE 15 % (20-40); MONOCYTE 5 % (0-10); NEUTROPHIL 75 % (50-75); PLATELET ESTIMATE SLIGHTLY INCREASED (NORMAL); TOTAL CELLS COUNTED 100
[2017-06-18] MEDS: cefOXitin 2 GM in Sodium Chloride 0.9% 100 ML IVPB SCH ×2 (03:15→11:36)
--- NOTE | 2017-06-18 04:20 | OP ---
PROCEDURE DATE: 06/17/2017 SURGEON: Doris Johnson MD SCREEN PRINTING MACHINE OPERATOR: Shahid Donahue MD TYPE OF ANESTHESIA: General endotracheal. PREOPERATIVE DIAGNOSES: Tubo-ovarian abscess, pelvic inflammatory disease, pelvic pain, recurrent periods, retained intrauterine device. OPERATIVE FINDINGS: 8- to 10-week size uterus, normal right fallopian tube and ovary, normal-appearing uterus; however, enlarged left ovary adherent to left fallopian tube, about 7 cm cystic, multiloculated with pustular fluid noted adherent to the left pelvic sidewall and uterine body posterior to colon and anterior to bladder; multiple adhesions lysed carefully to freely mobilize the tubo-ovarian abscess consisting of the left tube and ovary and lysis of the bowel to anterior abdominal wall and fascia, carefully . Approximately, 45 minutes spent lysis of adhesions carefully to allow for free mobilization of the infected adnexa. Upon entry, blood-tinged peritoneal fluid noted and collected for cytology and to culture tubo-ovarian abscess. Intrauterine device, the specimen removed was IUD extractor. POSTOPERATIVE DIAGNOSES: Tubo-ovarian abscess, pelvic inflammatory disease, pelvic pain, recurrent periods, retained intrauterine device. OPERATION PERFORMED: Exploratory laparotomy, excision of tubo-ovarian abscess, left salpingo-oophorectomy, lysis of adhesions, removal of retained intrauterine device, foreign body. SPECIMEN REMOVED: Peritoneal culture and pelvic washings for cytology, tubo-ovarian abscess and intrauterine device, left tubes and ovary/tubo-ovarian abscess. ESTIMATED BLOOD LOSS: 300 mL. BLOOD PRODUCTS: None. COMPLICATIONS: None. DESCRIPTION OF PROCEDURE: The patient is a 46-year-old para 2 with retained intrauterine device with fevers for two weeks and severe left lower quadrant pain for one week. The patient was evaluated outpatient in the office concerning for pelvic inflammatory disease and due to recurrent fevers and concern for more serious illness and tubo-ovarian abscess was referred to the emergency room. Upon evaluation, the patient was noted to be febrile, higher than 101 with the white count of higher than 18,000, elevated liver function, enzyme and a CT scan consistent with approximately 7 cm left adnexal multiloculated cystic mass. The patient was started on IV antibiotics with no improvement of white count and recurrent fevers with negative blood cultures, urine cultures, chest x-ray. Cervical and vaginal cultures pending. The antibiotic was then changed from gentamicin and clindamycin to Zosyn, and the patient continues to spike elevated temperatures, ID consult was obtained and additional cefoxitin and doxycycline were added with no improvement in WBC count, but improvement with LFTs trending down. The patient still with left lower quadrant pain, improved only with pain medication, however, returns with onset. The patient still noted to be having recurrent fevers and IR was consulted, was not able to successfully drain material. The patient was then counseled on need for exploratory laparotomy and removal of infected tubo-ovarian abscess. Risks, benefits, alternatives, and indications discussed with the patient, not limited to bleeding, infection, injury, not limited to bowel, bladder, blood vessels, other organs via the blood transfusion, possible hysterectomy and infertility. The patient was taken to the operative room where she was given general anesthesia. Once she was found adequate, she was positioned on the operating table in dorsal supine position. The patient was then prepped and draped in the usual sterile fashion. A time-out confirmed correct patient and correct procedure. Bimanual exam was performed with multiparous cervix appreciated, 10-week size uterus, left adnexal mass. Following this, after the abdomen was prepped and draped and time-out confirmed correct patient and correct procedure. A Pfannenstiel skin incision was made through the existing incision and carried down to the underlying fascia with the Bundy scissors. The superior aspect of the fascia of the patient was grasped, elevated with Abbey clamps and underlying rectus muscles and bowel tissues were carefully lysed using the Bundy scissors to avoid injury. Attention was then turned to the inferior aspect of the incision,which in a similar fashion was grasped, elevated with Abbey clamps and underlying rectus muscles were dissected off bluntly and bowel adhesions were carefully dissected using blunt and sharp dissection. Following this, the rectus muscle was then bluntly in the midline. The peritoneum was identified in a clear space. There was underlying bowel noted and released and a clear space was then tented up with two Hcana clamps and a clear space was entered sharply with Metzenbaum scissors, careful to avoid any bowel or injury or laceration to other surrounding organs. Peritoneal incision extended laterally and superiorly until there is good visualization. There was bloody peritoneal fluid noted which was collected for cytology and culture. Following this, the bowel was then retracted under the abdomen and the patient was placed in Trendelenburg position. The uterus was then noticed and identified and appeared to be grossly normal with a normal right ovarian tube; however, with a grossly abnormal left adnexa that was grossly adherent to the anterior abdominal wall and also surrounding structures. Following this, after all structures were carefully identified, the tubo-ovarian abscess was carefully dissected from the anterior portion of the bladder, also into colon and along the segment using sponge stick, Metzenbaum scissors and lysing and clear area. The utero-ovarian ligament was carefully dissected and and doubly clamped and cut with a Pa clamp and 0-Vicryl suture to help freely with mobilization. The fallopian tube was then carefully dissected from the and the round ligament was also adherent to the tubo-ovarian abscess which was carefully dissected, clamped with Chana clamp, suture ligated with 0-Vicryl suture with good hemostasis noted on the left side. The tubo-ovarian abscess was carefully dissected from the anterior abdominal wall, left lateral pelvic side wall careful to identify the ureter prior to and post after removal. The posterior adhesions to the bowel was then carefully and bluntly dissected to ensure no harm to the surrounding structures. The tubo-ovarian abscess had a foul-smelling discharge which was cultured upon removal. The abdomen was then thoroughly irrigated and clamped using normal saline. There was good hemostasis noted throughout the entire abdomen. The abdomen was washed and irrigated approximately three times. Following this, all pedicle sites were inspected and there was good hemostasis noted. Following this, the peritoneum was reapproximated and closed with 2-0 chromic in a running continuous fashion. Rectus was then re-approximated and closed with 2-0 chromic in an interrupted manner. The fascia was reapproximated and closed with 0-Vicryl in a running continuous fashion. Subcutaneous space was closed with 2-0 plain in an interrupted manner. The skin was reapproximated and closed with noman. Following this, the abdomen was then irrigated and cleaned and a pressure dressing was then obtained. Attention was then turned to peritoneum in which the patient was then frog legged in a dorsal supine position and a Henderson retractor was inserted into the vagina and the cervix was adequately visualized. There was no IUD strings noted at the cervical os and an IUD extractor was then used to help with manipulation of the string. In addition was an IUD hook which was successfully removed. There was good hemostasis noted all through. At the end of the procedure, all needles, sponge, and instrument counts were noted to be correct x2. The patient tolerated the procedure well and was transferred to the recovery room in stable condition. Doris Johnson MD
--- NOTE | 2017-06-18 04:47 | CP.PCM.PN ---
Subjective - Date & Time of Evaluation Date of Evaluation: 06/18/17 Time of Evaluation: 04:30 - Subjective Subjective: Pt seen and examiend, with temrpatuera 102 @ 00:00 pt currently restin in bed and reports pain is controlled. pt not yet ambuating dneis any nause, vomiting, CP, SOB, dizyzness, lightheadness, Objective - Vital Signs/Intake and Output Vital Signs (last 24 hours): Temp Pulse Resp BP Pulse Ox 98.7 F 78 17 118/76 97 06/18/17 03:21 06/18/17 03:21 06/18/17 03:21 06/18/17 03:21 06/18/17 03:21 Intake and Output: 06/17/17 06/18/17 18:59 06:59 Intake Total 2150 300 Output Total 350 200 Balance 1800 100 - Medications Medications: Current Medications Acetaminophen (Tylenol 325mg Tab) 650 mg PO Q6 PRN PRN Reason: Fever >100.4 F Last Admin: 06/17/17 23:57 Dose: 650 mg Cefoxitin Sodium 2 gm/ Sodium (Chloride) 100 mls @ 50 mls/hr IVPB Q8H [facility] Last Admin: 06/18/17 03:15 Dose: 50 mls/hr Doxycycline Hyclate 100 mg/ (Sodium Chloride) 100 mls @ 100 mls/hr IVPB Q12H [facility] Last Admin: 06/17/17 18:03 Dose: 100 mls/hr Ketorolac Tromethamine (Toradol) 30 mg IVP Q6H PRN PRN Reason: Pain, severe (8-10) Last Admin: 06/17/17 23:55 Dose: 30 mg - Labs Labs: 06/17/17 20:11 06/17/17 20:11 PT 17.2 SECONDS (9.7-12.2) H 06/17/17 08:00 INR 1.5 06/17/17 08:00 APTT 32 SECONDS (21-34) 06/15/17 07:24 - Constitutional Appears: Well, Non-toxic - Head Exam Head Exam: ATRAUMATIC, NORMAL INSPECTION - Eye Exam Eye Exam: EOMI, Normal appearance Pupil Exam: NORMAL ACCOMODATION - ENT Exam ENT Exam: Mucous Membranes Moist - Neck Exam Neck Exam: Full ROM, Normal Inspection - Respiratory Exam Respiratory Exam: Clear to Ausculation Bilateral, Wheezes, NORMAL BREATHING PATTERN - Cardiovascular Exam Cardiovascular Exam: +S1, +S2 - GI/Abdominal Exam GI & Abdominal Exam: Soft, Tenderness, Normal Bowel Sounds Additional comments: tenderness llq and over incsion, no guarding, no reboud tenderness, no rigidity, +BS no vaginal bleeding - Rectal Exam Rectal Exam: NORMAL INSPECTION - Extremities Exam Extremities Exam: Full ROM, Normal Inspection - Back Exam Back Exam: NORMAL INSPECTION - Neurological Exam Neurological Exam: CN II-XII Intact, Oriented x3 Assessment and Plan (1) Abdominal pain Status: Acute (2) Fever Status: Acute (3) Tubo-ovarian abscess Assessment & Plan: 46 y/o s/p TOA s/p Ex Lap Left Salpingoophrecotmy, TOA exicision with IUD removal POD #1 with fever -s/p IV antibitiocs amp / gent--> zoyszn--> Doxy/ Cefotxin -s/p ID consult appreciated -s/ IR Consult appreciated -Blood cx, urine Cx Negative -Wound cx: Gram Stain Prelim ngeative, f/u final culture -WBS 17-->17-->15.8 -dc valdivia -Clear liquid diet -enorage amabuiton out of bed with assistace -AM labs Status: Acute
[2017-06-18] MEDS ORDERED: Simethicone 80 mg Chewtab PO STA (04:58)
[2017-06-18] MEDS: Oxycodone/Acetaminophen 5/325 mg Tab PO PRN ×2 (05:26→16:30)
[2017-06-18 07:34] LABS: BASO % 0.2 % (0.0-2.0); EOS # 0.1 K/uL (0.0-0.7); EOS % 0.9 % (0.0-4.0); HEMOGLOBIN 8.8 g/dL (11.0-16.0); LYMPH # 1.6 K/uL (1.0-4.3); LYMPH % 12.7 % (20.0-40.0); MEAN CORPUSCULAR HGB CONC 33.4 g/dL (33.0-37.0); MEAN PLATELET VOLUME 7.2 fL (7.2-11.7); MONO # 0.9 K/uL (0.0-0.8); MONO % 7.4 % (0.0-10.0); NEUT # 9.9 K/uL (1.8-7.0); NEUT % 78.8 % (50.0-75.0); RBC 3.27 Mil/uL (3.80-5.20); RED CELL DISTRIBUTION WIDTH 13.2 % (11.5-14.5); WHITE BLOOD COUNT 12.6 K/uL (4.8-10.8)
[2017-06-18 07:47] LABS: ALB/GLOB RATIO 0.8 (1.0-2.1); ALBUMIN 2.4 g/dL (3.5-5.0); ALT/SGPT 42 U/L (9-52); AST/SGOT 31 U/L (14-36); BLOOD UREA NITROGEN 7 mg/dL (7-17); CALCIUM 7.8 mg/dl (8.6-10.4); GFR AFRICAN-AMERICAN > 60; GFR NON-AFRICAN AMERICAN > 60
[2017-06-18] MEDS ORDERED: Magnesium Hydroxide Susp 30 ml UD PO ONE (12:00)
[2017-06-18] MEDS: Simethicone 80 mg Chewtab PO SCH (15:05)
--- NOTE | 2017-06-18 18:42 | CP.PCM.PN ---
Subjective - Date & Time of Evaluation Date of Evaluation: 06/18/17 Time of Evaluation: 08:00 - Subjective Subjective: fever again this am c/o lower abd pain no vomiting family at the bedside Objective - Vital Signs/Intake and Output Vital Signs (last 24 hours): Temp Pulse Resp BP Pulse Ox 98.2 F 87 18 103/66 99 06/18/17 16:00 06/18/17 16:00 06/18/17 16:00 06/18/17 16:00 06/18/17 16:00 Intake and Output: 06/18/17 06/18/17 06:59 18:59 Intake Total 300 2125 Output Total 1600 Balance -1300 2125 - Medications Medications: Current Medications Acetaminophen (Tylenol 325mg Tab) 650 mg PO Q6 PRN PRN Reason: Fever >100.4 F Last Admin: 06/17/17 23:57 Dose: 650 mg Cefoxitin Sodium 2 gm/ Sodium (Chloride) 100 mls @ 50 mls/hr IVPB Q8H [facility] Last Admin: 06/18/17 11:36 Dose: 50 mls/hr Doxycycline Hyclate 100 mg/ (Sodium Chloride) 100 mls @ 100 mls/hr IVPB Q12H [facility] Last Admin: 06/18/17 06:15 Dose: 100 mls/hr Ibuprofen (Motrin Tab) 600 mg PO TID PRN PRN Reason: Pain, Mild (1-3) Last Admin: 06/18/17 11:34 Dose: 600 mg Oxycodone/Acetaminophen (Percocet 5/325 Mg Tab) 1 tab PO Q4H PRN PRN Reason: Pain, moderate (4-7) Stop: 06/21/17 05:00 Last Admin: 06/18/17 16:30 Dose: 1 tab Oxycodone/Acetaminophen (Percocet 5/325 Mg Tab) 2 tab PO Q4H PRN PRN Reason: Pain, severe (8-10) Stop: 06/21/17 05:00 Last Admin: 06/18/17 05:26 Dose: 2 tab Simethicone (Mylicon Chew Tab) 80 mg PO Q8 [facility] Last Admin: 06/18/17 15:05 Dose: 80 mg - Labs Labs: 06/18/17 07:20 06/18/17 07:20 PT 17.2 SECONDS (9.7-12.2) H 06/17/17 08:00 INR 1.5 06/17/17 08:00 APTT 32 SECONDS (21-34) 06/15/17 07:24 - Constitutional Appears: Non-toxic, Chronically Ill - Head Exam Head Exam: NORMOCEPHALIC - Eye Exam Eye Exam: PERRL. absent: Scleral icterus - ENT Exam ENT Exam: Mucous Membranes Dry - Neck Exam Neck Exam: absent: Lymphadenopathy - Respiratory Exam Respiratory Exam: Decreased Breath Sounds, Clear to Ausculation Bilateral - Cardiovascular Exam Cardiovascular Exam: REGULAR RHYTHM - GI/Abdominal Exam GI & Abdominal Exam: Distended, Soft, Tenderness, Hypoactive Bowel Sounds. absent: Mass - Rectal Exam Rectal Exam: Deferred - Exam Exam: NORMAL INSPECTION - Extremities Exam Extremities Exam: absent: Calf Tenderness, Pedal Edema - Back Exam Back Exam: absent: CVA tenderness (L), CVA tenderness (R) - Neurological Exam Neurological Exam: Alert, Awake, Normal Gait, Oriented x3 Neuro motor strength exam: Left Upper Extremity: 5, Right Upper Extremity: 5, Left Lower Extremity: 5, Right Lower Extremity: 5 - Psychiatric Exam Psychiatric exam: Normal Mood - Skin Skin Exam: Dry, Intact Assessment and Plan (1) Abdominal pain Status: Acute (2) Fever Status: Acute (3) Tubo-ovarian abscess Status: Acute - Assessment and Plan (Free Text) Assessment: s/p resection left TOA with retained IUD remved cultures so far neg await path/ cultures ? Actinomyces cont iv antibiotics wbc slowly decreasing
[2017-06-18 22:04] LABS: BASO % 0.3 % (0.0-2.0); EOS # 0.2 K/uL (0.0-0.7); EOS % 1.1 % (0.0-4.0); HEMOGLOBIN 9.1 g/dL (11.0-16.0); LYMPH # 1.1 K/uL (1.0-4.3); MEAN CELL VOLUME 80.4 fL (81.0-99.0); MEAN CORPUSCULAR HEMOGLOBIN 26.7 pg (27.0-31.0); MEAN CORPUSCULAR HGB CONC 33.2 g/dL (33.0-37.0); MEAN PLATELET VOLUME 7.3 fL (7.2-11.7); MONO # 0.6 K/uL (0.0-0.8); MONO % 4.7 % (0.0-10.0); NEUT # 11.4 K/uL (1.8-7.0); NEUT % 85.9 % (50.0-75.0); PLATELET COUNT 491 K/uL (130-400); RBC 3.42 Mil/uL (3.80-5.20); RED CELL DISTRIBUTION WIDTH 12.7 % (11.5-14.5); WHITE BLOOD COUNT 13.3 K/uL (4.8-10.8)
[2017-06-18 22:21] LABS: ALB/GLOB RATIO 0.8 (1.0-2.1); ALBUMIN 2.9 g/dL (3.5-5.0); ALT/SGPT 50 U/L (9-52); AST/SGOT 37 U/L (14-36); BLOOD UREA NITROGEN 6 mg/dL (7-17); CALCIUM 8.2 mg/dl (8.6-10.4); GFR AFRICAN-AMERICAN > 60; GFR NON-AFRICAN AMERICAN > 60
[2017-06-18 22:30] LABS: ANISOCYTOSIS SLIGHT; BANDS 2 % (0-2); HYPOCHROMIC SLIGHT; LYMPHOCYTE 10 % (20-40); MONOCYTE 2 % (0-10); NEUTROPHIL 86 % (50-75); PLATELET ESTIMATE SLIGHTLY INCREASED (NORMAL); POIKILOCYTOSIS SLIGHT; TOTAL CELLS COUNTED 100
--- NOTE | 2017-06-18 22:35 | CT ---
EXAM: CT Chest Without Intravenous Contrast CT Abdomen and Pelvis Without Intravenous Contrast CLINICAL HISTORY: 46 years old, female; Signs and symptoms; Fever; Prior surgery; Surgery date: Post-operative (0-2 days) TECHNIQUE: Axial computed tomography images of the chest, abdomen and pelvis without intravenous contrast. Coronal and sagittal reformatted images were created and reviewed. COMPARISON: CT - ABD PELVIS IV CONTRAST ONLY 2017-06-14 19:10 FINDINGS: CHEST: Lungs: Subsegmental atelectasis right lung base. Pleural space: Unremarkable. No significant effusion. No pneumothorax. Heart: Unremarkable. No cardiomegaly. No significant pericardial effusion. ABDOMEN: Liver: Unremarkable. Gallbladder and bile ducts: Unremarkable. No calcified stones. No ductal dilation. Pancreas: Unremarkable. No ductal dilation. Spleen: Unremarkable. No splenomegaly. Adrenals: Unremarkable. No mass. Kidneys and ureters: Unremarkable. No obstructing stones. No hydronephrosis. Stomach and bowel: Unremarkable. No obstruction. Appendix: No findings to suggest acute appendicitis. PELVIS: Bladder: Unremarkable. No stones. Reproductive: Unremarkable as visualized. CHEST, ABDOMEN and PELVIS: Intraperitoneal space: Postsurgical changes in the pelvis, with moderate amount of hyperdense fluid, likely containing some postoperative blood products. No evidence of abscess. No free air. Bones/joints: Unremarkable. No acute fracture. No dislocation. Soft tissues: Recent lower abdominal wall surgery with postsurgical changes. There is stranding and some subcutaneous gas in the soft tissues. Transversely oriented suprapubic skin noman. Vasculature: Unremarkable. No aortic aneurysm. Lymph nodes: Unremarkable. No enlarged lymph nodes. IMPRESSION: 1. Postsurgical changes in the pelvis. 2. No evidence of abscess.
[2017-06-19] MEDS: Simethicone 80 mg Chewtab PO SCH ×3 (00:45→22:47)
[2017-06-19] MEDS: cefOXitin 2 GM in Sodium Chloride 0.9% 100 ML IVPB SCH ×2 (03:37→10:08)
[2017-06-19] MEDS: Oxycodone/Acetaminophen 5/325 mg Tab PO PRN ×2 (09:52→16:10)
--- NOTE | 2017-06-19 09:58 | CP.PCM.PN ---
Subjective - Date & Time of Evaluation Date of Evaluation: 06/19/17 Time of Evaluation: 09:00 - Subjective Subjective: Pt seen and examined and reports intermittent abodminal pain over incsion well controlled with medicain. pt is out ob ed to chair, ambuating , voididng, passing faltus, +BM daily, with fevers. pt reprots she only doesn't feel well with fever. pt dneis any current fever, chills, naseu,vomiting, cp, sob, lightheadness, dizyzness. Pt reports tolerated po intake but scared to eat. Pt dneis any recent travel or sick contacts. Objective - Vital Signs/Intake and Output Vital Signs (last 24 hours): Temp Pulse Resp BP Pulse Ox 98.4 F 82 18 108/65 100 06/19/17 07:56 06/19/17 07:56 06/19/17 07:56 06/19/17 07:56 06/19/17 07:56 Intake and Output: 06/19/17 06/19/17 06:59 18:59 Intake Total 125 Balance 125 - Medications Medications: Current Medications Acetaminophen (Tylenol 325mg Tab) 650 mg PO Q6 PRN PRN Reason: Fever >100.4 F Last Admin: 06/18/17 20:23 Dose: 650 mg Cefoxitin Sodium 2 gm/ Sodium (Chloride) 100 mls @ 50 mls/hr IVPB Q8H [facility] Last Admin: 06/19/17 03:37 Dose: 50 mls/hr Doxycycline Hyclate 100 mg/ (Sodium Chloride) 100 mls @ 100 mls/hr IVPB Q12H [facility] Last Admin: 06/19/17 06:29 Dose: 100 mls/hr Ibuprofen (Motrin Tab) 600 mg PO TID PRN PRN Reason: Pain, Mild (1-3) Last Admin: 06/19/17 02:32 Dose: 600 mg Oxycodone/Acetaminophen (Percocet 5/325 Mg Tab) 1 tab PO Q4H PRN PRN Reason: Pain, moderate (4-7) Stop: 06/21/17 05:00 Last Admin: 06/19/17 09:52 Dose: 1 tab Oxycodone/Acetaminophen (Percocet 5/325 Mg Tab) 2 tab PO Q4H PRN PRN Reason: Pain, severe (8-10) Stop: 06/21/17 05:00 Last Admin: 06/18/17 05:26 Dose: 2 tab Simethicone (Mylicon Chew Tab) 80 mg PO Q8 [facility] Last Admin: 06/19/17 00:45 Dose: 80 mg - Labs Labs: 06/18/17 22:08 06/18/17 22:12 PT 17.2 SECONDS (9.7-12.2) H 06/17/17 08:00 INR 1.5 06/17/17 08:00 APTT 32 SECONDS (21-34) 06/15/17 07:24 - Head Exam Head Exam: ATRAUMATIC, NORMAL INSPECTION - Eye Exam Eye Exam: EOMI - ENT Exam ENT Exam: Mucous Membranes Moist - Neck Exam Neck Exam: Normal Inspection - Respiratory Exam Respiratory Exam: Clear to Ausculation Bilateral, NORMAL BREATHING PATTERN - Cardiovascular Exam Cardiovascular Exam: REGULAR RHYTHM, +S1, +S2 - GI/Abdominal Exam GI & Abdominal Exam: Soft, Normal Bowel Sounds Additional comments: approparitaely TTP over incsion no guarding, no reboudn tendnerss, no rigdity, + BS incison c/d/i noman intact no vagial bleeding - Extremities Exam Extremities Exam: Full ROM, Normal Inspection Additional comments: negative wander's sign, negative calf tendenrses - Neurological Exam Neurological Exam: CN II-XII Intact, Normal Gait, Oriented x3 Assessment and Plan (1) Abdominal pain Status: Acute (2) Fever Status: Acute (3) Tubo-ovarian abscess Assessment & Plan: s/p Ex Lap, TOA and IUD removal POD #2 with fevers -Last fever 20:00 104--> 102, CBC WBC 13, CT Chest/Abd/Pelvic no growss abnormaliest with TOA notvisucalused (without contrast) -All culuture negative, TOA Cx final pending -IV antibiocs Doxy, Cefotixn -s/P ID consult apprciated, possible fungal infection? -Pain amngment -encourage ambatuin with assiatnce as needed -Regulgar diet -IVH -Incentive spiromner, abodminal binder -AM Labs Status: Acute
[2017-06-19 10:59] LABS: BASO % 0.3 % (0.0-2.0); EOS # 0.2 K/uL (0.0-0.7); EOS % 1.5 % (0.0-4.0); LYMPH # 1.3 K/uL (1.0-4.3); LYMPH % 10.8 % (20.0-40.0); MEAN CELL VOLUME 81.3 fL (81.0-99.0); MEAN CORPUSCULAR HEMOGLOBIN 27.1 pg (27.0-31.0); MEAN CORPUSCULAR HGB CONC 33.3 g/dL (33.0-37.0); MEAN PLATELET VOLUME 7.6 fL (7.2-11.7); MONO # 0.7 K/uL (0.0-0.8); MONO % 6.1 % (0.0-10.0); NEUT # 9.9 K/uL (1.8-7.0); NEUT % 81.3 % (50.0-75.0); RBC 3.31 Mil/uL (3.80-5.20); RED CELL DISTRIBUTION WIDTH 13.3 % (11.5-14.5); WHITE BLOOD COUNT 12.2 K/uL (4.8-10.8)
[2017-06-19 11:19] LABS: ALB/GLOB RATIO 0.7 (1.0-2.1); ALBUMIN 2.9 g/dL (3.5-5.0); ALT/SGPT 46 U/L (9-52); AST/SGOT 42 U/L (14-36); BLOOD UREA NITROGEN 5 mg/dL (7-17); CALCIUM 8.4 mg/dl (8.6-10.4); GFR AFRICAN-AMERICAN > 60; GFR NON-AFRICAN AMERICAN > 60
[2017-06-19] MEDS ORDERED: Potassium Chloride 20 mEq/15 ml LIQ UD PO ONE (17:10)
--- NOTE | 2017-06-19 17:23 | CP.PCM.CON ---
<Mary Pedro - Last Filed: 06/19/17 18:58> History of Present Illness - History of Present Illness History of Present Illness: Medical Consult Note - Dr. Villagomez's Service Reason for Consult: Tubo-ovarian Abscess; persistent fevers HPI: 46 [place]ian Female with no significant PMHx is S/P Ex Lap, Excision of Abscess, Left Salpingoopherectomy with IUD removal 06/17/17. Medicine consulted for persistent fevers post op. Patient reports prior to admission she was having fever, chills, abdominal pain, vaginal discharge x 2 weeks. She saw her PMD who prescribed her Cipro and gave her a referral to a STUDENT MINISTRIES DIRECTOR. Patient was unable to tolerate the pain and came to the ED instead. Patient noticed a 14lb weight gain since 2 weeks, despite decreased appetite. Once in the ED CT AB/Pel and Transvaginal US showed tubo-ovarian abscess on left ovary. Despite surgical removal and antibiotic regimen patient persists with cyclical fevers after 7/8 PM. Patient has been dumont cultured and reimaged with all negative studies. Admitted to fever, chills, abdominal pain. Denied headaches, chest pain, SOB, n/ v/d/c, or urinary symptoms. PMHx: Denied PSHx: C-Sections x 2 Meds: was on Cipro as per PMD All: NKDA SHx: Denied FHx: Denied OBHx: P2 CXS x 2 GYNHx: LMP 04/28/2017, irreugualr, IUD x 5-6 years (pt unsure), bib hx of abnromal pap, fibroids, ovarian cyst, STI ge of Menarche 30 dayx 4-5 day duration Past Patient History - Past Medical History & Family History Past Medical History?: No - Past Social History Smoking Status: Never Smoked Chewing Tobacco Use: No Cigar Use: No Alcohol: None - MUSCULOSKELETAL/RHEUMATOLOGICAL Hx Falls: No - PSYCHIATRIC Hx Substance Use: No - SURGICAL HISTORY Hx Surgeries: Yes Hx Section: Yes Meds Allergies/Adverse Reactions: Allergies Allergy/AdvReac Type Severity Reaction Status Date / Time No Known Allergies Allergy Verified 06/14/17 14:56 - Medications Medications: Current Medications Acetaminophen (Tylenol 325mg Tab) 650 mg PO Q6 PRN PRN Reason: Fever >100.4 F Last Admin: 06/18/17 20:23 Dose: 650 mg Cefoxitin Sodium 2 gm/ Sodium (Chloride) 100 mls @ 50 mls/hr IVPB Q8H [facility] Last Admin: 06/19/17 10:08 Dose: 50 mls/hr Doxycycline Hyclate 100 mg/ (Sodium Chloride) 100 mls @ 100 mls/hr IVPB Q12H [facility] Last Admin: 06/19/17 06:29 Dose: 100 mls/hr Ibuprofen (Motrin Tab) 600 mg PO TID PRN PRN Reason: Pain, Mild (1-3) Last Admin: 06/19/17 16:03 Dose: 600 mg Oxycodone/Acetaminophen (Percocet 5/325 Mg Tab) 1 tab PO Q4H PRN PRN Reason: Pain, moderate (4-7) Stop: 06/21/17 05:00 Last Admin: 06/19/17 16:10 Dose: 1 tab Oxycodone/Acetaminophen (Percocet 5/325 Mg Tab) 2 tab PO Q4H PRN PRN Reason: Pain, severe (8-10) Stop: 06/21/17 05:00 Last Admin: 06/18/17 05:26 Dose: 2 tab Simethicone (Mylicon Chew Tab) 80 mg PO Q8 [facility] Last Admin: 06/19/17 13:33 Dose: 80 mg Physical Exam - Constitutional Appears: No Acute Distress - Head Exam Head Exam: NORMAL INSPECTION, NORMOCEPHALIC - Eye Exam Eye Exam: EOMI, Normal appearance - ENT Exam ENT Exam: Mucous Membranes Moist - Respiratory Exam Respiratory Exam: Clear to Auscultation Bilateral, NORMAL BREATHING PATTERN. absent: Decreased Breath Sounds, Wheezes - Cardiovascular Exam Cardiovascular Exam: REGULAR RHYTHM, RRR, +S1, +S2 - GI/Abdominal Exam GI & Abdominal Exam: Distended, Normal Bowel Sounds, Soft, Tenderness (LLQ; surgical incision site c/d/i; noman in place ) - Rectal Exam Rectal Exam: Deferred - Extremities Exam Extremities exam: Positive for: normal inspection, pedal pulses present. Negative for: calf tenderness, pedal edema, tenderness - Neurological Exam Neurological exam: Alert, CN II-XII Intact, Oriented x3 - Psychiatric Exam Psychiatric exam: Normal Affect, Normal Mood - Skin Skin Exam: Dry, Intact, Normal Color, Warm Results - Vital Signs Recent Vital Signs: Last Vital Signs Temp 104.3 F H 06/19/17 16:19 Pulse 110 H 06/19/17 16:19 Resp 18 06/19/17 16:19 BP 130/76 06/19/17 16:19 Pulse Ox 98 06/19/17 16:19 - Labs Result Diagrams: 06/19/17 10:54 06/19/17 10:54 Labs: Laboratory Results - last 24 hr 06/18/17 06/18/17 06/19/17 22:08 22:12 10:54 WBC 13.3 H 12.2 H RBC 3.42 L 3.31 L Hgb 9.1 L 9.0 L Hct 27.5 L 26.9 L MCV 80.4 L 81.3 MCH 26.7 L 27.1 MCHC 33.2 33.3 RDW 12.7 13.3 Plt Count 491 H 480 H MPV 7.3 7.6 Neut % (Auto) 85.9 H 81.3 H Lymph % (Auto) 8.0 L 10.8 L [place] % (Auto) 4.7 6.1 Eos % (Auto) 1.1 1.5 Baso % (Auto) 0.3 0.3 Neut # (Auto) 11.4 H 9.9 H Lymph # (Auto) 1.1 1.3 [place] # (Auto) 0.6 0.7 Eos # (Auto) 0.2 0.2 Baso # (Auto) 0.0 0.0 Neutrophils % (Manual) 86 H Band Neutrophils % 2 Lymphocytes % (Manual) 10 L Monocytes % (Manual) 2 Platelet Estimate Slightly increased H Hypochromasia (manual) Slight Poikilocytosis (manual Slight Anisocytosis (manual) Slight Sodium 132 Potassium 3.8 Chloride 96 L Carbon Dioxide 27 Anion Gap 14 BUN 6 L Creatinine 0.6 L Est GFR ( Amer) > 60 Est GFR (Non-Af Amer) > 60 Random Glucose 125 H Calcium 8.2 L Total Bilirubin 0.5 AST 37 H ALT 50 Alkaline Phosphatase 94 Total Protein 6.6 Albumin 2.9 L D Globulin 3.6 Albumin/Globulin Ratio 0.8 L 06/19/17 10:54 WBC RBC Hgb Hct MCV MCH MCHC RDW Plt Count MPV Neut % (Auto) Lymph % (Auto) [place] % (Auto) Eos % (Auto) Baso % (Auto) Neut # (Auto) Lymph # (Auto) [place] # (Auto) Eos # (Auto) Baso # (Auto) Neutrophils % (Manual) Band Neutrophils % Lymphocytes % (Manual) Monocytes % (Manual) Platelet Estimate Hypochromasia (manual) Poikilocytosis (manual Anisocytosis (manual) Sodium 139 Potassium 3.5 L Chloride 100 Carbon Dioxide 29 Anion Gap 14 BUN 5 L Creatinine 0.5 L Est GFR ( Amer) > 60 Est GFR (Non-Af Amer) > 60 Random Glucose 115 H Calcium 8.4 L Total Bilirubin 0.4 AST 42 H ALT 46 Alkaline Phosphatase 85 Total Protein 6.8 Albumin 2.9 L Globulin 3.9 Albumin/Globulin Ratio 0.7 L Assessment & Plan - Assessment and Plan (Free Text) Plan: Fever Tubo-ovarian Abscess, Concerns for PID, Retained IUD S/P Ex Lap, Excision of Abscess, Left Salpingoopherectomy with IUD removal 06/17 ID Consulted - Dr. House- help appreciated Febrile throughout admission, TMax 104.3 Tachycardia Need to rule out infectious vs malignancy vs dvt/ PE vs drug induced Labs: Leukocytosis at 12 with left shift, no bandemia noted BC 06/14/17 - no growth to date UC 06/14/17- no growth to date Abscess wound culture - no growth to date Repeat BC Repeat UC Lactate level, D-Dimer, ESR, CRP, Lactic Acid, CRP, LDH, procal, cdiff, stool studies ECHO Venous Dopplers UE and LE - r/o DVT Imaging: CT Abdomen/Pelvis (06/14): 1. Multiloculated cystic mass noted within the left adnexa with a maximum diameter 6.5 cm. Differential diagnostic considerations include complex functional cyst, tubo-ovarian abscess or cystic neoplasm. Pelvic ultrasound might be considered for more definitive characterization. Transvaginal US (06/14): The left ovary is enlarged and there is a 6.7 x 4.3 x 5.2 cm tubular multilocular complex cystic mass in the left adnexa. The dominant cystic component measures 3.1 x 3.2 x [address] Chest/ab/pel (06/18): 1. Postsurgical changes in the pelvis. 2. No evidence of abscess. Meds: NS @ 100cc/hr Doxycycline 100mg IVP Q12 started 06/16 Cefoxitin 2 gram IVP Q8H started 06/16 Tylenol 650mg PO Q6H x 4 doses, then PRN Transient Transaminitis Hepatitis Panel: Negative Likely 2/2 to frequent tylenol use over the span of 2 weeks Will continue to monitor Prophylactic Measures DVT: Lovenox 65mg SC Q12 Dr. Villagomez, Mary Pedro DO, PGY-1 <Anahi Villagomez V - Last Filed: 06/19/17 23:54> Meds - Medications Medications: Current Medications Acetaminophen (Tylenol 325mg Tab) 650 mg PO Q6 [facility] Stop: 06/20/17 06:01 Last Admin: 06/19/17 18:00 Dose: Not Given Acetaminophen (Tylenol 325mg Tab) 650 mg PO Q6 PRN PRN Reason: Pain, Mild (1-3) Enoxaparin Sodium (Lovenox) 65 mg SC Q12H [facility] Sodium Chloride (Sodium Chloride 0.9%) 1,000 mls @ 100 mls/hr IV .Q10H [facility] Last Admin: 06/19/17 19:01 Dose: 100 mls/hr Piperacillin Sod/Tazobactam (Sod 3.375 gm/ Sodium Chloride) 100 mls @ 100 mls/ hr IVPB Q6H [facility] Last Admin: 06/19/17 19:01 Dose: 100 mls/hr Doxycycline Hyclate 100 mg/ (Sodium Chloride) 100 mls @ 100 mls/hr IVPB Q12H [facility] Oxycodone/Acetaminophen (Percocet 5/325 Mg Tab) 1 tab PO Q4H PRN PRN Reason: Pain, moderate (4-7) Stop: 06/21/17 05:00 Last Admin: 06/19/17 16:10 Dose: 1 tab Oxycodone/Acetaminophen (Percocet 5/325 Mg Tab) 2 tab PO Q4H PRN PRN Reason: Pain, severe (8-10) Stop: 06/21/17 05:00 Last Admin: 06/18/17 05:26 Dose: 2 tab Simethicone (Mylicon Chew Tab) 80 mg PO Q8 [facility] Last Admin: 06/19/17 22:47 Dose: 80 mg Results - Vital Signs Recent Vital Signs: Last Vital Signs Temp 100.7 F H 06/19/17 18:00 Pulse 110 H 06/19/17 16:19 Resp 18 06/19/17 16:19 BP 130/76 06/19/17 16:19 Pulse Ox 98 06/19/17 16:19 - Labs Result Diagrams: 06/19/17 10:54 06/19/17 10:54 Labs: Laboratory Results - last 24 hr 06/19/17 06/19/17 06/19/17 10:54 10:54 19:30 WBC 12.2 H RBC 3.31 L Hgb 9.0 L Hct 26.9 L MCV 81.3 MCH 27.1 MCHC 33.3 RDW 13.3 Plt Count 480 H MPV 7.6 Neut % (Auto) 81.3 H Lymph % (Auto) 10.8 L [place] % (Auto) 6.1 Eos % (Auto) 1.5 Baso % (Auto) 0.3 Neut # (Auto) 9.9 H Lymph # (Auto) 1.3 [place] # (Auto) 0.7 Eos # (Auto) 0.2 Baso # (Auto) 0.0 ESR D-Dimer, Quantitative Sodium 139 Potassium 3.5 L Chloride 100 Carbon Dioxide 29 Anion Gap 14 BUN 5 L Creatinine 0.5 L Est GFR ( Amer) > 60 Est GFR (Non-Af Amer) > 60 Random Glucose 115 H Lactic Acid Calcium 8.4 L Total Bilirubin 0.4 AST 42 H ALT 46 Alkaline Phosphatase 85 Lactate Dehydrogenase C-React Prot High Sens Total Protein 6.8 Albumin 2.9 L Globulin 3.9 Albumin/Globulin Ratio 0.7 L Procalcitonin 1.40 H Urine Color Urine Clarity Urine pH Ur Specific [place] Urine Protein Urine Glucose (UA) Urine Ketones Urine Blood Urine Nitrate Urine Bilirubin Urine Urobilinogen Ur Leukocyte Esterase Urine RBC (Auto) Ur Squamous Epith Cells C. difficile Ag & Toxin 06/19/17 06/19/17 06/19/17 19:30 19:30 19:30 WBC RBC Hgb Hct MCV MCH MCHC RDW Plt Count MPV Neut % (Auto) Lymph % (Auto) [place] % (Auto) Eos % (Auto) Baso % (Auto) Neut # (Auto) Lymph # (Auto) [place] # (Auto) Eos # (Auto) Baso # (Auto) ESR 97 H D-Dimer, Quantitative 2907 H Sodium Potassium Chloride Carbon Dioxide Anion Gap BUN Creatinine Est GFR ( Amer) Est GFR (Non-Af Amer) Random Glucose Lactic Acid Calcium Total Bilirubin AST ALT Alkaline Phosphatase Lactate Dehydrogenase 571 C-React Prot High Sens Total Protein Albumin Globulin Albumin/Globulin Ratio Procalcitonin Urine Color Urine Clarity Urine pH Ur Specific [place] Urine Protein Urine Glucose (UA) Urine Ketones Urine Blood Urine Nitrate Urine Bilirubin Urine Urobilinogen Ur Leukocyte Esterase Urine RBC (Auto) Ur Squamous Epith Cells C. difficile Ag & Toxin 06/19/17 06/19/17 06/19/17 19:30 19:32 20:15 WBC RBC Hgb Hct MCV MCH MCHC RDW Plt Count MPV Neut % (Auto) Lymph % (Auto) [place] % (Auto) Eos % (Auto) Baso % (Auto) Neut # (Auto) Lymph # (Auto) [place] # (Auto) Eos # (Auto) Baso # (Auto) ESR D-Dimer, Quantitative Sodium Potassium Chloride Carbon Dioxide Anion Gap BUN Creatinine Est GFR ( Amer) Est GFR (Non-Af Amer) Random Glucose Lactic Acid 1.1 Calcium Total Bilirubin AST ALT Alkaline Phosphatase Lactate Dehydrogenase C-React Prot High Sens > 15.00 H Total Protein Albumin Globulin Albumin/Globulin Ratio Procalcitonin Urine Color Urine Clarity Urine pH Ur Specific [place] Urine Protein Urine Glucose (UA) Urine Ketones Urine Blood Urine Nitrate Urine Bilirubin Urine Urobilinogen Ur Leukocyte Esterase Urine RBC (Auto) Ur Squamous Epith Cells C. difficile Ag & Toxin Negative 06/19/17 20:16 WBC RBC Hgb Hct MCV MCH MCHC RDW Plt Count MPV Neut % (Auto) Lymph % (Auto) [place] % (Auto) Eos % (Auto) Baso % (Auto) Neut # (Auto) Lymph # (Auto) [place] # (Auto) Eos # (Auto) Baso # (Auto) ESR D-Dimer, Quantitative Sodium Potassium Chloride Carbon Dioxide Anion Gap BUN Creatinine Est GFR ( Amer) Est GFR (Non-Af Amer) Random Glucose Lactic Acid Calcium Total Bilirubin AST ALT Alkaline Phosphatase Lactate Dehydrogenase C-React Prot High Sens Total Protein Albumin Globulin Albumin/Globulin Ratio Procalcitonin Urine Color Colorless Urine Clarity Clear Urine pH 6.0 Ur Specific [place] 1.002 L Urine Protein Negative Urine Glucose (UA) Normal Urine Ketones Negative Urine Blood Negative Urine Nitrate Negative Urine Bilirubin Negative Urine Urobilinogen Normal Ur Leukocyte Esterase Neg Urine RBC (Auto) < 1 Ur Squamous Epith Cells < 1 C. difficile Ag & Toxin Attending/Attestation - Attestation I have personally seen and examined this patient.: Yes I have fully participated in the care of the patient.: Yes I have reviewed all pertinent clinical information: Yes Notes (Text): Medicine consult: persistent fevers, tuboovarian abscess Patient seen, examined and case discussed with day-time resident. Patient seen in maternity, with many family members including , 3 children, and mother. Patient reports 2 week history of fever and associated body aches. Patient denies recent travel, denies sick contact exposure, reports she has gained 14 lbs unintentional, denies rash, denies insect bites, and reports had IUD prior. Patient reports she called her PMD, had taken Ciprofloxacin and then established care with Ob-STUDENT MINISTRIES DIRECTOR who did further workup. Infectious disease on case on IV abx. Patient noted on admission with multiloculated cystic mass. She has had tumor markers completed, elevated CA 125. Renata spoke with in regards to CA 125 marker, she reported given age perimenopausal and CA 125 <70 less likely for animal nutrition consultant onc cancer. Patient is postoperative day 2 from OB-STUDENT MINISTRIES DIRECTOR surgery. Per ob-animal nutrition consultant, appears likely tuboovarian abscess during operation. Since procedure, patient reports she is ambulatory, but is afraid to eat when she feels the fever, and denies urinary frequency, hematuria, nor discharge. Patient reports she feels distended , gas pains, and feels fullness over rightside. In regards to fever, ordered for d-dimer, given clots can cause fever. Venous dopplers upper and lower extremity b/l. Ob-animal nutrition consultant considering septic pelvic thrombophlebitis and started on therapuetic lovenox Patient is having fevers predominantly at night shortly after start time of IV abx, unclear if drug induced or not. Patient ordered for repeat blood cultures, 2 different locations, 30 mins and advised to repeat blood cultures at next spike. Ordered for procalcitoin, determine bacterial cause. Patient's Tmax: 104.3F. Patient's white count is downtrending. Lactate acid ordered to monitor since patient's fills sirs/sepsis criteria. Fever, white count, and known source of infection: tubovarian abscess. Less likely brain mass, will order CT head w/o contrast for completeness sake. Patient denies headaches, denies visual disturbance. ESR and CRP ordered. JUN ordered. Patient reports loose stools, is on IV abx, ordered for C. Dif Patient no longer as IUD and has had repeat CT Abdomen/pelvis post operative post surgical changes noted. Assessment/Plan 1) Tubo-ovarian Abscess, Concerns for PID, Retained IUD * Management per OB-STUDENT MINISTRIES DIRECTOR * S/P Ex Lap, Excision of Abscess, Left Salpingoopherectomy with IUD removal * ID Consulted - Dr. House- help appreciated * Medicine on consult for fever * Febrile throughout admission, TMax 104.3, Tachycardia * Need to rule out infectious vs malignancy vs dvt/ PE vs drug induced Labs: Leukocytosis at 12 with left shift, no bandemia noted BC 06/14/17 - no growth to date UC 06/14/17- no growth to date Abscess wound culture - no growth to date Repeat BC Repeat UC Lactate level, D-Dimer, ESR, CRP, Lactic Acid, CRP, LDH, procal, cdiff, stool studies ECHO Venous Dopplers UE and LE - r/o DVT Imaging: CT Abdomen/Pelvis (06/14): 1. Multiloculated cystic mass noted within the left adnexa with a maximum diameter 6.5 cm. Differential diagnostic considerations include complex functional cyst, tubo-ovarian abscess or cystic neoplasm. Pelvic ultrasound might be considered for more definitive characterization. Transvaginal US (06/14): The left ovary is enlarged and there is a 6.7 x 4.3 x 5.2 cm tubular multilocular complex cystic mass in the left adnexa. The dominant cystic component measures 3.1 x 3.2 x [address] Chest/ab/pel (06/18): 1. Postsurgical changes in the pelvis. 2. No evidence of abscess. Meds: NS @ 100cc/hr Doxycycline 100mg IVP Q12 started 06/16 Cefoxitin 2 gram IVP Q8H started 06/16 Tylenol 650mg PO Q6H x 4 doses, then PRN Transient Transaminitis * Hepatitis Panel: Negative * Acute phase reactant; inflammatory state, patient fills sirs criteria * unlikely due to tylenol monitor Prophylactic Measures DVT: Lovenox 65mg SC Q12
[2017-06-19] MEDS ORDERED: Apap-Butalbital-Caffeine 325-50-40mg Tab PO SCH (18:00)
[2017-06-19] MEDS ORDERED: Enoxaparin 80 mg Syringe SC SCH (19:00)
[2017-06-19] MEDS ORDERED: Enoxaparin 60 mg Syringe SC SCH (19:00)
[2017-06-19] MEDS: Sodium Chloride 0.9% 1,000 ML IV SCH (19:01)
[2017-06-19] MEDS: Piperacillin/Tazobact 3.375 GM in Sodium Chloride 0.9% 100 ML IVPB SCH (19:01)
[2017-06-19 20:27] LABS: SQUAMOUS EPITHIAL < 1 /hpf (0-5); URINE BILIRUBIN NEGATIVE (NEGATIVE); URINE BLOOD NEGATIVE (NEGATIVE); URINE CLARITY Clear (Clear); URINE COLOR Colorless (YELLOW); URINE GLUCOSE (UA) NORMAL (Normal); URINE LEUKOCYTE ESTERASE NEG Leu/uL (Negative); URINE NITRATE NEGATIVE (NEGATIVE); URINE PROTEIN NEGATIVE (NEGATIVE); URINE UROBILINOGEN NORMAL mg/dL (0.2-1.0)
[2017-06-19] MEDS: Enoxaparin 80 mg Syringe SC SCH (22:45)
[2017-06-20] MEDS: Piperacillin/Tazobact 3.375 GM in Sodium Chloride 0.9% 100 ML IVPB SCH ×3 (01:00→12:33)
[2017-06-20] MEDS: Oxycodone/Acetaminophen 5/325 mg Tab PO PRN ×3 (01:02→09:25)
[2017-06-20] MEDS: Sodium Chloride 0.9% 1,000 ML IV SCH (05:30)
[2017-06-20] MEDS: Simethicone 80 mg Chewtab PO SCH ×4 (06:33→21:48)
[2017-06-20 08:53] LABS: BASO % 0.4 % (0.0-2.0); EOS # 0.3 K/uL (0.0-0.7); EOS % 3.7 % (0.0-4.0); LYMPH # 1.3 K/uL (1.0-4.3); LYMPH % 17.2 % (20.0-40.0); MEAN CELL VOLUME 81.5 fL (81.0-99.0); MEAN CORPUSCULAR HEMOGLOBIN 27.6 pg (27.0-31.0); MEAN CORPUSCULAR HGB CONC 33.9 g/dL (33.0-37.0); MEAN PLATELET VOLUME 7.5 fL (7.2-11.7); MONO # 0.7 K/uL (0.0-0.8); MONO % 9.3 % (0.0-10.0); NEUT # 5.4 K/uL (1.8-7.0); NEUT % 69.4 % (50.0-75.0); RBC 2.91 Mil/uL (3.80-5.20); RED CELL DISTRIBUTION WIDTH 13.3 % (11.5-14.5); WHITE BLOOD COUNT 7.8 K/uL (4.8-10.8)
[2017-06-20 09:00] LABS: INR 1.2; PROTHROMBIN TIME 13.9 SECONDS (9.7-12.2)
[2017-06-20 09:26] LABS: ALB/GLOB RATIO 0.7 (1.0-2.1); ALBUMIN 2.4 g/dL (3.5-5.0); ALT/SGPT 52 U/L (9-52); AST/SGOT 45 U/L (14-36); BLOOD UREA NITROGEN 4 mg/dL (7-17); CALCIUM 7.6 mg/dl (8.6-10.4); GFR AFRICAN-AMERICAN > 60; GFR NON-AFRICAN AMERICAN > 60
[2017-06-20] MEDS ORDERED: Iodixanol 320 MG/ML 100 ML BOTTLE IV ONE (10:19)
[2017-06-20] MEDS: Enoxaparin 80 mg Syringe SC SCH ×2 (10:46→21:50)
--- NOTE | 2017-06-20 11:41 | CT ---
PROCEDURE: CT Chest with contrast (Pulmonary Angiogram) HISTORY: r/o PE COMPARISON: CT scan of the chest, abdomen pelvis dated 06/18/2017. TECHNIQUE: Axial computed tomography images were obtained of the chest in the pulmonary arterial phase of enhancement. Coronal and sagittal reformatted images were created and reviewed. Intravenous contrast dose: 100 mL Visipaque 320 Radiation dose: Total exam DLP = 223.4 mGy-cm. This CT exam was performed using one or more of the following dose reduction techniques: Automated exposure control, adjustment of the mA and/or kV according to patient size, and/or use of iterative reconstruction technique. FINDINGS: PULMONARY ARTERIES: Unremarkable. No pulmonary embolism. AORTA: No acute findings. Aberrant right subclavian artery. No thoracic aortic aneurysm. LUNGS: Pulmonary vascular congestion. No nodule, mass or pulmonary consolidation. PLEURAL SPACES: Trace bilateral pleural effusions. No pneumothorax. HEART: Unremarkable. No cardiomegaly. No significant pericardial effusion. LYMPH NODES: No lymphadenopathy. BONES, CHEST WALL: Unremarkable. No fracture or destructive lesion OTHER FINDINGS: Unremarkable. IMPRESSION: Unremarkable CT pulmonary angiogram. No pulmonary embolus. Pulmonary vascular congestion with trace bilateral pleural effusions.
--- NOTE | 2017-06-20 11:51 | CP.PCM.PN ---
<Mary Pedro - Last Filed: 06/20/17 13:10> Subjective - Date & Time of Evaluation Date of Evaluation: 06/20/17 Time of Evaluation: 09:00 - Subjective Subjective: Medicine Note for Hospitalist Service- Dr. Villagomez Patient was seen and examined at bedside. Patient reports she feels a lot better today, with some mild abdominal pain at surgical site. Denied any fever, chills, headaches, chest pain, SOB, n/v/d/c, or urinary symptoms. Objective - Vital Signs/Intake and Output Vital Signs (last 24 hours): Temp Pulse Resp BP Pulse Ox 99.9 F H 76 18 82/52 L 99 06/20/17 07:27 06/20/17 07:27 06/20/17 07:27 06/20/17 07:27 06/20/17 07:27 Intake and Output: 06/20/17 06/20/17 06:59 18:59 Intake Total 3500 Balance 3500 - Medications Medications: Current Medications Acetaminophen (Tylenol 325mg Tab) 650 mg PO Q6 PRN PRN Reason: Pain, Mild (1-3) Enoxaparin Sodium (Lovenox) 65 mg SC Q12H [facility] Last Admin: 06/20/17 10:46 Dose: 65 mg Sodium Chloride (Sodium Chloride 0.9%) 1,000 mls @ 100 mls/hr IV .Q10H [facility] Last Admin: 06/20/17 05:30 Dose: 100 mls/hr Piperacillin Sod/Tazobactam (Sod 3.375 gm/ Sodium Chloride) 100 mls @ 100 mls/ hr IVPB Q6H [facility] Last Admin: 06/20/17 06:33 Dose: 100 mls/hr Doxycycline Hyclate 100 mg/ (Sodium Chloride) 100 mls @ 100 mls/hr IVPB Q12H [facility] Last Admin: 06/20/17 09:39 Dose: 100 mls/hr Oxycodone/Acetaminophen (Percocet 5/325 Mg Tab) 1 tab PO Q4H PRN PRN Reason: Pain, moderate (4-7) Stop: 06/21/17 05:00 Last Admin: 06/19/17 16:10 Dose: 1 tab Oxycodone/Acetaminophen (Percocet 5/325 Mg Tab) 2 tab PO Q4H PRN PRN Reason: Pain, severe (8-10) Stop: 06/21/17 05:00 Last Admin: 06/20/17 09:25 Dose: 2 tab Simethicone (Mylicon Chew Tab) 80 mg PO Q8 [facility] Last Admin: 06/20/17 06:34 Dose: 80 mg - Labs Labs: 06/20/17 08:42 06/20/17 08:42 PT 13.9 SECONDS (9.7-12.2) H 06/20/17 08:42 INR 1.2 06/20/17 08:42 APTT 34 SECONDS (21-34) 06/20/17 08:42 - Additional Findings Additional findings: - Constitutional Appears: No Acute Distress - Head Exam Head Exam: NORMAL INSPECTION, NORMOCEPHALIC - Eye Exam Eye Exam: EOMI, Normal appearance - ENT Exam ENT Exam: Mucous Membranes Moist - Respiratory Exam Respiratory Exam: Clear to Auscultation Bilateral, NORMAL BREATHING PATTERN. absent: Decreased Breath Sounds, Wheezes - Cardiovascular Exam Cardiovascular Exam: REGULAR RHYTHM, RRR, +S1, +S2 - GI/Abdominal Exam GI & Abdominal Exam: Distended, Normal Bowel Sounds, Soft, Tenderness (LLQ; surgical incision site c/d/i; noman in place ) - Rectal Exam Rectal Exam: Deferred - Extremities Exam Extremities exam: Positive for: normal inspection, pedal pulses present. Negative for: calf tenderness, pedal edema, tenderness - Neurological Exam Neurological exam: Alert, CN II-XII Intact, Oriented x3 - Psychiatric Exam Psychiatric exam: Normal Affect, Normal Mood - Skin Skin Exam: Dry, Intact, Normal Color, Warm Assessment and Plan - Assessment and Plan (Free Text) Plan: Fever Tubo-ovarian Abscess, Concerns for PID, Retained IUD S/P Ex Lap, Excision of Abscess, Left Salpingoopherectomy with IUD removal 06/17 ID Consulted - Dr. House- help appreciated Febrile throughout admission, TMax 104.3 Tachycardia Need to rule out infectious vs malignancy vs dvt/ PE vs drug induced Labs: Leukocytosis at 12 with left shift, no bandemia noted BC 06/14/17 - no growth to date UC 06/14/17- no growth to date Abscess wound culture - no growth to date Repeat BC Repeat UC Lactate level - low, ESR and CRP- elevated, LDH- normal, cdiff- negative Procal- elevated D-Dimer - elevated 3000 F/U ECHO Venous Dopplers UE and LE - r/o DVT F/U stool studies Imaging: CTA: NEGATIVE PE CT Abdomen/Pelvis (06/14): 1. Multiloculated cystic mass noted within the left adnexa with a maximum diameter 6.5 cm. Differential diagnostic considerations include complex functional cyst, tubo-ovarian abscess or cystic neoplasm. Pelvic ultrasound might be considered for more definitive characterization. Transvaginal US (06/14): The left ovary is enlarged and there is a 6.7 x 4.3 x 5.2 cm tubular multilocular complex cystic mass in the left adnexa. The dominant cystic component measures 3.1 x 3.2 x [address] Chest/ab/pel (06/18): 1. Postsurgical changes in the pelvis. 2. No evidence of abscess. Meds: NS @ 100cc/hr Doxycycline 100mg IVP Q12 started 06/16 Cefoxitin 2 gram IVP Q8H started 06/16 Tylenol 650mg PO Q6H x 4 doses, then PRN Transient Transaminitis Hepatitis Panel: Negative Likely 05/21 to frequent tylenol use over the span of 2 weeks Will continue to monitor Prophylactic Measures DVT: Lovenox 65mg SC Q12 DW Dr. Villagomez, Mary Pedro DO, PGY-1 <Anahi Villagomez V - Last Filed: 06/20/17 23:18> Objective - Vital Signs/Intake and Output Vital Signs (last 24 hours): Temp Pulse Resp BP Pulse Ox 98.5 F 92 H 20 104/68 100 06/20/17 20:00 06/20/17 20:00 06/20/17 20:00 06/20/17 20:00 06/20/17 20:00 - Medications Medications: Current Medications Acetaminophen (Tylenol 325mg Tab) 650 mg PO Q6 PRN PRN Reason: Pain, Mild (1-3) Last Admin: 06/20/17 22:06 Dose: 650 mg Enoxaparin Sodium (Lovenox) 65 mg SC Q12H [facility] Last Admin: 06/20/17 21:50 Dose: 65 mg Sodium Chloride (Sodium Chloride 0.9%) 1,000 mls @ 100 mls/hr IV .Q10H [facility] Last Admin: 06/20/17 05:30 Dose: 100 mls/hr Vancomycin/Sodium Chloride (Vancomycin 1 Gm/Ns 200 Ml) 1 gm in 200 mls @ 133.333 mls/hr IVPB Q12H [facility] Stop: 06/25/17 16:31 Last Admin: 06/20/17 16:46 Dose: 133.333 mls/hr Meropenem 1 gm/ Sodium (Chloride) 100 mls @ 100 mls/hr IVPB Q8H [facility] Last Admin: 06/20/17 17:52 Dose: 100 mls/hr Ibuprofen (Motrin Tab) 400 mg PO Q6H PRN PRN Reason: Pain, Mild (1-3) Last Admin: 06/20/17 17:49 Dose: 400 mg Lactobacillus Acidophilus (Bacid Acidophilus) 1 cap PO BID [facility] Last Admin: 06/20/17 17:54 Dose: 1 cap Ondansetron HCl (Zofran Inj) 4 mg IVP Q6H PRN PRN Reason: Nausea/Vomiting Oxycodone HCl (Oxycodone Immediate Release Tab) 5 mg PO Q6 PRN PRN Reason: Pain, moderate (4-7) Last Admin: 06/20/17 15:30 Dose: 5 mg Simethicone (Mylicon Chew Tab) 80 mg PO Q8 [facility] Last Admin: 06/20/17 21:48 Dose: 80 mg - Labs Labs: 06/20/17 08:42 06/20/17 08:42 PT 13.9 SECONDS (9.7-12.2) H 06/20/17 08:42 INR 1.2 06/20/17 08:42 APTT 34 SECONDS (21-34) 06/20/17 08:42 Attending/Attestation - Attestation I have personally seen and examined this patient.: Yes I have fully participated in the care of the patient.: Yes I have reviewed all pertinent clinical information, including history, physical exam and plan: Yes Notes (Text): Medicine consult: persistent fevers, tuboovarian abscess Patient seen, examined and case discussed with day-time resident. Patient seen in maternity, with many family members at bedside this morning. Patient reports she had a fever last night. Did not receive hypothermic blanket. Patient denies nausea, denies vomitting, reports normal stool. Patient's d-dimer is elevated. CT angio for PE order: PE is ruled out and also to noted no consolidation noted. Awaiting for venous dopplers rule out clot from extremities. Patient is ordered for blood cultures specifically at times of the fevers. Patient is on therapuetic lovenox started by OB-SALES ADMINISTRATOR for suspicion for septic pelvic thromboplebhitis. Patient's white count has normalized, continues to spike fevers, clarification between pain and fever medications. First C. Dif is negative. Repeat C. Dif ordered. Patient does appear more distended compared to my exam yesterday with abdominal binder present. O Patient is having fevers during the day time. Updated OB-SALES ADMINISTRATOR today. Procalcitonin elevated supporting bacterial etiology however no baseline to compare to. Continue IV fluids Less likely brain mass, will order CT head w/o contrast for completeness sake. Patient denies headaches, denies visual disturbance. ESR elevated. CRP elevated. Discussed with ID during their rounds today, IV Abx per ID. Assessment/Plan 1) Fevers Tubo-ovarian Abscess, Concerns for PID, Retained IUD * Management per OB-SALES ADMINISTRATOR * S/P Ex Lap, Excision of Abscess, Left Salpingoopherectomy with IUD removal * ID Consulted - Dr. House- help appreciated * Medicine on consult for fever * Febrile throughout admission, TMax 104.3, Tachycardia * Need to rule out infectious vs malignancy vs dvt/ PE vs drug induced Labs: Leukocytosis at 12 with left shift-->normalized BC 06/14/17 - no growth to date UC 06/14/17- no growth to date Pending repeat blood cultures and urine studies Abscess wound culture - coagulase negative Stap Lactate level: 1.1, D-Dimer elevated-->CT angio rule out PE ESR: elevated CRP: elevated ECHO Venous Dopplers UE and LE - r/o DVT pending Imaging: CT Abdomen/Pelvis (06/14): 1. Multiloculated cystic mass noted within the left adnexa with a maximum diameter 6.5 cm. Differential diagnostic considerations include complex functional cyst, tubo-ovarian abscess or cystic neoplasm. Pelvic ultrasound might be considered for more definitive characterization. Transvaginal US (06/14): The left ovary is enlarged and there is a 6.7 x 4.3 x 5.2 cm tubular multilocular complex cystic mass in the left adnexa. The dominant cystic component measures 3.1 x 3.2 x [address] Chest/ab/pel (06/18): 1. Postsurgical changes in the pelvis. 2. No evidence of abscess. Meds: NS @ 100cc/hr Doxycycline 100mg IVP Q12 started 06/16 Cefoxitin 2 gram IVP Q8H started 06/16 Tylenol 650mg PO Q6H x 4 doses, then PRN Transient Transaminitis * Hepatitis Panel: Negative * Acute phase reactant; inflammatory state, patient fills sirs criteria Prophylactic Measures * DVT: Lovenox 65mg SC Q12 * Changed vitals to [id number] * Hypothermic blanket
[2017-06-20] MEDS: oxyCODONE 5 mg Immediate Release Tab PO PRN ×2 (13:34→15:30)
--- NOTE | 2017-06-20 14:28 | CP.PCM.PN ---
Subjective - Date & Time of Evaluation Date of Evaluation: 06/20/17 Time of Evaluation: 07:00 - Subjective Subjective: iv rx in progress added Vanco / Merrem as fever persists repeat CT in am if fever persists recultured Objective - Vital Signs/Intake and Output Vital Signs (last 24 hours): Temp Pulse Resp BP Pulse Ox 99 F 88 20 131/88 98 06/20/17 13:30 06/20/17 13:30 06/20/17 13:30 06/20/17 13:30 06/20/17 13:30 Intake and Output: 06/20/17 06/20/17 06:59 18:59 Intake Total 3500 Balance 3500 - Medications Medications: Current Medications Acetaminophen (Tylenol 325mg Tab) 650 mg PO Q6 PRN PRN Reason: Pain, Mild (1-3) Enoxaparin Sodium (Lovenox) 65 mg SC Q12H [facility] Last Admin: 06/20/17 10:46 Dose: 65 mg Sodium Chloride (Sodium Chloride 0.9%) 1,000 mls @ 100 mls/hr IV .Q10H [facility] Last Admin: 06/20/17 05:30 Dose: 100 mls/hr Vancomycin HCl 1,000 mg/ (Sodium Chloride) 250 mls @ 166.6 mls/hr IVPB Q12H [facility] Meropenem 1 gm/ Sodium (Chloride) 100 mls @ 100 mls/hr IVPB Q8 [facility] Lactobacillus Acidophilus (Bacid Acidophilus) 1 cap PO BID [facility] Oxycodone HCl (Oxycodone Immediate Release Tab) 5 mg PO Q6 PRN PRN Reason: Pain, moderate (4-7) Last Admin: 06/20/17 13:34 Dose: 5 mg Simethicone (Mylicon Chew Tab) 80 mg PO Q8 [facility] Last Admin: 06/20/17 13:37 Dose: 80 mg - Labs Labs: 06/20/17 08:42 06/20/17 08:42 PT 13.9 SECONDS (9.7-12.2) H 06/20/17 08:42 INR 1.2 06/20/17 08:42 APTT 34 SECONDS (21-34) 06/20/17 08:42 - Constitutional Appears: Non-toxic, Chronically Ill - Head Exam Head Exam: NORMOCEPHALIC - Eye Exam Eye Exam: PERRL. absent: Scleral icterus - ENT Exam ENT Exam: Mucous Membranes Dry - Neck Exam Neck Exam: absent: Lymphadenopathy - Respiratory Exam Respiratory Exam: Decreased Breath Sounds, Clear to Ausculation Bilateral - Cardiovascular Exam Cardiovascular Exam: REGULAR RHYTHM, +S1, +S2 - GI/Abdominal Exam GI & Abdominal Exam: Distended, Soft. absent: Tenderness - Rectal Exam Rectal Exam: Deferred - Exam Exam: NORMAL INSPECTION - Extremities Exam Extremities Exam: absent: Pedal Edema - Back Exam Back Exam: absent: CVA tenderness (L), CVA tenderness (R) - Neurological Exam Neurological Exam: Alert, Awake, Oriented x3 - Psychiatric Exam Psychiatric exam: Normal Mood - Skin Skin Exam: Dry, Intact Assessment and Plan (1) Abdominal pain Status: Acute (2) Fever Status: Acute (3) Tubo-ovarian abscess Status: Acute - Assessment and Plan (Free Text) Assessment: recultured cont iv antibiotics / wound care discussed with medical team
[2017-06-20] MEDS: Vancomycin 1 gm/NS 200 ml 1 GM/200 ML BAG IVPB SCH (16:46)
[2017-06-20] MEDS: Meropenem 1 GM in Sodium Chloride 0.9% 100 ML IVPB SCH (17:52)
[2017-06-20] MEDS: Lactobacillus Acidophilus 500 MU Cap PO SCH (17:54)
--- NOTE | 2017-06-20 20:24 | CP.PCM.PN ---
Subjective - Date & Time of Evaluation Date of Evaluation: 06/20/17 Time of Evaluation: 19:30 - Subjective Subjective: pt seen and examiend and reports feeling better however has pain iwth fever. lsta fever 4pm. pt ambuating, voiding, CP, SOB, nause, vomiting. Pt report pain over incsion well controlled with pain medicaion. Objective - Vital Signs/Intake and Output Vital Signs (last 24 hours): Temp Pulse Resp BP Pulse Ox 101.6 F H 106 H 20 128/76 97 06/20/17 16:54 06/20/17 15:00 06/20/17 15:00 06/20/17 15:00 06/20/17 15:00 - Medications Medications: Current Medications Acetaminophen (Tylenol 325mg Tab) 650 mg PO Q6 PRN PRN Reason: Pain, Mild (1-3) Last Admin: 06/20/17 15:30 Dose: 650 mg Enoxaparin Sodium (Lovenox) 65 mg SC Q12H [facility] Last Admin: 06/20/17 10:46 Dose: 65 mg Sodium Chloride (Sodium Chloride 0.9%) 1,000 mls @ 100 mls/hr IV .Q10H [facility] Last Admin: 06/20/17 05:30 Dose: 100 mls/hr Vancomycin/Sodium Chloride (Vancomycin 1 Gm/Ns 200 Ml) 1 gm in 200 mls @ 133.333 mls/hr IVPB Q12H [facility] Stop: 06/25/17 16:31 Last Admin: 06/20/17 16:46 Dose: 133.333 mls/hr Meropenem 1 gm/ Sodium (Chloride) 100 mls @ 100 mls/hr IVPB Q8H [facility] Last Admin: 06/20/17 17:52 Dose: 100 mls/hr Ibuprofen (Motrin Tab) 400 mg PO Q6H PRN PRN Reason: Pain, Mild (1-3) Last Admin: 06/20/17 17:49 Dose: 400 mg Lactobacillus Acidophilus (Bacid Acidophilus) 1 cap PO BID [facility] Last Admin: 06/20/17 17:54 Dose: 1 cap Ondansetron HCl (Zofran Inj) 4 mg IVP Q6H PRN PRN Reason: Nausea/Vomiting Oxycodone HCl (Oxycodone Immediate Release Tab) 5 mg PO Q6 PRN PRN Reason: Pain, moderate (4-7) Last Admin: 06/20/17 15:30 Dose: 5 mg Simethicone (Mylicon Chew Tab) 80 mg PO Q8 [facility] Last Admin: 06/20/17 13:37 Dose: 80 mg - Labs Labs: 06/20/17 08:42 06/20/17 08:42 PT 13.9 SECONDS (9.7-12.2) H 06/20/17 08:42 INR 1.2 06/20/17 08:42 APTT 34 SECONDS (21-34) 06/20/17 08:42 - Head Exam Head Exam: ATRAUMATIC, NORMAL INSPECTION - Eye Exam Eye Exam: EOMI Pupil Exam: NORMAL ACCOMODATION - ENT Exam ENT Exam: Mucous Membranes Moist - Neck Exam Neck Exam: Full ROM, Normal Inspection - Respiratory Exam Respiratory Exam: Clear to Ausculation Bilateral, NORMAL BREATHING PATTERN - Cardiovascular Exam Cardiovascular Exam: +S1, +S2 - GI/Abdominal Exam GI & Abdominal Exam: Soft, Normal Bowel Sounds Additional comments: appropriate TTP over incisin, no guarding, no rebound tendernss, no rigidty, +BS Incision C/D/I no vaginal bleeding - Extremities Exam Extremities Exam: Full ROM Additional comments: negative wander's sign, negative calf tenderness - Back Exam Back Exam: NORMAL INSPECTION - Neurological Exam Neurological Exam: CN II-XII Intact - Psychiatric Exam Psychiatric exam: Normal Affect Assessment and Plan (1) Abdominal pain Status: Acute (2) Fever Status: Acute (3) Tubo-ovarian abscess Assessment & Plan: 46 y/o s/p Ex Lap TOA exicsion , IUD removal POD #3 with recurrent fevers suspcion for septic pelvic thrombophelbiti 1. IV Antibitics : now Meropenem/Vacncomyin as per ID 2. s/P ID Consult apprecited 3. s/p Medicine consult appreciate: f/u LE doppler, Echo 4. Surgical Cx: Absecess: coag neg staphylocoolcus 5. Blood cx 1st set: negative, 2nd set penidng 6. Urine Cx 1ste negaet, repeat pending 7. Leukocytosi improved 18--> 8/9 tremending out 8. Anticoaguation: lovenxou 65mg subq x 12 hours 9. regular deit 10. Post op care: incentive spirometer, abdominal binder 11. AM Labs Status: Acute
[2017-06-21] MEDS: oxyCODONE 5 mg Immediate Release Tab PO PRN ×3 (00:32→22:39)
[2017-06-21] MEDS: Meropenem 1 GM in Sodium Chloride 0.9% 100 ML IVPB SCH ×3 (01:46→18:43)
[2017-06-21] MEDS: Vancomycin 1 gm/NS 200 ml 1 GM/200 ML BAG IVPB SCH ×2 (03:45→17:00)
[2017-06-21] MEDS: Simethicone 80 mg Chewtab PO SCH ×3 (06:17→22:26)
[2017-06-21 07:24] LABS: BASO % 0.4 % (0.0-2.0); EOS # 0.2 K/uL (0.0-0.7); EOS % 2.8 % (0.0-4.0); HEMOGLOBIN 8.4 g/dL (11.0-16.0); LYMPH # 1.1 K/uL (1.0-4.3); LYMPH % 13.8 % (20.0-40.0); MEAN CELL VOLUME 80.9 fL (81.0-99.0); MEAN CORPUSCULAR HEMOGLOBIN 27.7 pg (27.0-31.0); MEAN CORPUSCULAR HGB CONC 34.2 g/dL (33.0-37.0); MEAN PLATELET VOLUME 7.6 fL (7.2-11.7); MONO # 0.7 K/uL (0.0-0.8); MONO % 8.9 % (0.0-10.0); NEUT # 5.9 K/uL (1.8-7.0); NEUT % 74.1 % (50.0-75.0); RBC 3.05 Mil/uL (3.80-5.20); RED CELL DISTRIBUTION WIDTH 13.2 % (11.5-14.5); WHITE BLOOD COUNT 7.9 K/uL (4.8-10.8)
[2017-06-21 07:37] LABS: ALB/GLOB RATIO 0.7 (1.0-2.1); ALBUMIN 2.7 g/dL (3.5-5.0); ALT/SGPT 68 U/L (9-52); AST/SGOT 68 U/L (14-36); BLOOD UREA NITROGEN 4 mg/dL (7-17); GFR AFRICAN-AMERICAN > 60; GFR NON-AFRICAN AMERICAN > 60; MAGNESIUM 2.1 mg/dL (1.6-2.3)
[2017-06-21] MEDS: Sodium Chloride 0.9% 1,000 ML IV SCH ×2 (09:00→19:35)
[2017-06-21] MEDS: Lactobacillus Acidophilus 500 MU Cap PO SCH ×2 (11:24→18:06)
[2017-06-21] MEDS: Enoxaparin 80 mg Syringe SC SCH ×2 (11:26→22:58)
--- NOTE | 2017-06-21 12:36 | VASCLAB ---
PROCEDURE: Upper Extremity Venous Duplex Exam HISTORY: DVT PRIORS: None. TECHNIQUE: Bilateral upper extremity, internal jugular, subclavian, axillary, brachial, ulnar, radial, basilic and upper cephalic veins were evaluated. Flow was assessed with color Doppler, compressibility, assessment of phasic flow and augmentation response. Report prepared by Jesus Alejandro, JESSA, RVT FINDINGS: RIGHT: 1. Internal Jugular: 1.1. Compressibility - Fully compressible: Thrombus - None : Flow - Phasic: Augmentation -Normal: Reflux - None. 2. Subclavian: 2.1. Compressibility - Fully compressible: Thrombus - None : Flow - Phasic: Augmentation -Normal: Reflux - None. 3. Axillary: 3.1. Compressibility - Fully compressible: Thrombus - None : Flow - Phasic: Augmentation -Normal: Reflux - None. 4. Brachial: 4.1. Compressibility - Fully compressible: Thrombus - None: Flow - Phasic: Augmentation -Normal: Reflux - None. 5. Ulnar: 5.1. Compressibility - Fully compressible: Thrombus - None: Flow - Phasic: Augmentation -Normal: Reflux - None. 6. Radial: 6.1. Compressibility - Fully compressible: Thrombus - None: Flow - Phasic: Augmentation - Normal: Reflux - None. 7. Cephalic: 7.1. Compressibility - Fully compressible: Thrombus - None: Flow - Phasic: Augmentation -Normal: Reflux - None. 8. Basilic: 8.1. Compressibility - Fully compressible: Thrombus - None: Flow - Phasic: Augmentation -Normal: Reflux - None. LEFT: 1. Internal Jugular: 1.1. Compressibility - Fully compressible: Thrombus - None : Flow - Phasic: Augmentation -Normal: Reflux - None. 2. Subclavian: 2.1. Compressibility - Fully compressible: Thrombus - None : Flow - Phasic: Augmentation -Normal: Reflux - None. 3. Axillary: 3.1. Compressibility - Fully compressible: Thrombus - None : Flow - Phasic: Augmentation -Normal: Reflux - None. 4. Brachial: 4.1. Compressibility - Fully compressible: Thrombus - None: Flow - Phasic: Augmentation -Normal: Reflux - None. 5. Ulnar: 5.1. Compressibility - Fully compressible: Thrombus - None: Flow - Phasic: Augmentation -Normal: Reflux - None. 6. Radial: 6.1. Compressibility - Fully compressible: Thrombus - None: Flow - Phasic: Augmentation - Normal: Reflux - None. 7. Cephalic: 7.1. Compressibility - Fully compressible: Thrombus - None: Flow - Phasic: Augmentation -Normal: Reflux - None. 8. Basilic: 8.1. Compressibility - Fully compressible: Thrombus - None: Flow - Phasic: Augmentation -Normal: Reflux - None. OTHER FINDINGS: Right: None. Left: None. IMPRESSION: Right: No evidence of vein thrombosis of the right upper extremity with excellent venous flow. Normal valve function noted of the right side. Left: No evidence of vein thrombosis of the left upper extremity with excellent venous flow. Normal valve function noted of the left side.
--- NOTE | 2017-06-21 12:36 | VASCLAB ---
PROCEDURE: Lower Extremity Venous Duplex Exam. HISTORY: DVT PRIORS: None. TECHNIQUE: Bilateral common femoral, femoral, popliteal and posterior tibial, peroneal and great saphenous veins were evaluated. Flow was assessed with color Doppler, compressibility, assessment of phasic flow and augmentation response. Report prepared by JESSA Bui, RVT FINDINGS: RIGHT: 1. Common Femoral Vein: 1.1. Compressibility - Fully compressible: Thrombus - None : Flow - Phasic: Augmentation -Normal: Reflux - None. 2. Femoral Vein: 2.1. Compressibility - Fully compressible: Thrombus - None : Flow - Phasic: Augmentation -Normal: Reflux - None. 3. Popliteal Vein: 3.1. Compressibility - Fully compressible: Thrombus - None : Flow - Phasic: Augmentation -Normal: Reflux - None. 4. Posterior Tibial Vein: 4.1. Compressibility - Fully compressible: Thrombus - None: Flow - Phasic: Augmentation -Normal: Reflux - None. 5. Peroneal Vein: 5.1. Compressibility - Fully compressible: Thrombus - None: Flow - Phasic: Augmentation -Normal: Reflux - None. 6. Great Saphenous Vein: 6.1. Compressibility - Fully compressible: Thrombus - None: Flow - Phasic: Augmentation - Normal: Reflux - None. LEFT: 1. Common Femoral Vein: 1.1. Compressibility - Fully compressible: Thrombus - None: Flow - Phasic: Augmentation -Normal: Reflux - None. 2. Femoral Vein: 2.1. Compressibility - Fully compressible: Thrombus - None: Flow - Phasic: Augmentation -Normal: Reflux - None. 3. Popliteal Vein: 3.1. Compressibility - Fully compressible: Thrombus - None : Flow - Phasic: Augmentation -Normal: Reflux - None. 4. Posterior Tibial Vein: 4.1. Compressibility - Fully compressible: Thrombus - None: Flow - Phasic: Augmentation -Normal: Reflux - None. 5. Peroneal Vein: 5.1. Compressibility - Fully compressible: Thrombus - None: Flow - Phasic: Augmentation -Normal: Reflux - None. 6. Great Saphenous Vein: 6.1. Compressibility - Fully compressible: Thrombus - None: Flow - Phasic: Augmentation - Normal: Reflux - None. OTHER FINDINGS: Right: None significant. Left: None significant. IMPRESSION: Right: No evidence of deep or superficial vein thrombosis of the right lower extremity. Normal valve function noted of the right side. Left: No evidence of deep or superficial vein thrombosis of the left lower extremity. Normal valve function noted of the left side.
--- NOTE | 2017-06-21 12:42 | CP.PCM.PN ---
Subjective - Date & Time of Evaluation Date of Evaluation: 06/21/17 Time of Evaluation: 08:00 - Subjective Subjective: feels better but still spiking no new cultures oob to chair abd soft no chest pain or SOB Objective - Vital Signs/Intake and Output Vital Signs (last 24 hours): Temp Pulse Resp BP Pulse Ox 97.9 F 92 H 18 130/74 97 06/21/17 08:00 06/21/17 08:00 06/21/17 08:00 06/21/17 08:00 06/21/17 08:00 - Medications Medications: Current Medications Acetaminophen (Tylenol 325mg Tab) 650 mg PO Q6 PRN PRN Reason: Pain, Mild (1-3) Last Admin: 06/20/17 22:06 Dose: 650 mg Enoxaparin Sodium (Lovenox) 65 mg SC Q12H [facility] Last Admin: 06/21/17 11:26 Dose: 65 mg Sodium Chloride (Sodium Chloride 0.9%) 1,000 mls @ 100 mls/hr IV .Q10H [facility] Last Admin: 06/20/17 05:30 Dose: 100 mls/hr Vancomycin/Sodium Chloride (Vancomycin 1 Gm/Ns 200 Ml) 1 gm in 200 mls @ 133.333 mls/hr IVPB Q12H [facility] Stop: 06/25/17 16:31 Last Admin: 06/21/17 03:45 Dose: 133.333 mls/hr Meropenem 1 gm/ Sodium (Chloride) 100 mls @ 100 mls/hr IVPB Q8H [facility] Last Admin: 06/21/17 11:24 Dose: 100 mls/hr Ibuprofen (Motrin Tab) 400 mg PO Q6H PRN PRN Reason: Pain, Mild (1-3) Last Admin: 06/21/17 11:15 Dose: 400 mg Lactobacillus Acidophilus (Bacid Acidophilus) 1 cap PO BID [facility] Last Admin: 06/21/17 11:24 Dose: 1 cap Ondansetron HCl (Zofran Inj) 4 mg IVP Q6H PRN PRN Reason: Nausea/Vomiting Last Admin: 06/21/17 04:20 Dose: 4 mg Oxycodone HCl (Oxycodone Immediate Release Tab) 5 mg PO Q6 PRN PRN Reason: Pain, moderate (4-7) Last Admin: 06/21/17 00:32 Dose: 5 mg Simethicone (Mylicon Chew Tab) 80 mg PO Q8 [facility] Last Admin: 06/21/17 06:17 Dose: 80 mg - Labs Labs: 06/21/17 07:05 06/21/17 07:05 PT 13.9 SECONDS (9.7-12.2) H 06/20/17 08:42 INR 1.2 06/20/17 08:42 APTT 34 SECONDS (21-34) 06/20/17 08:42 - Constitutional Appears: Non-toxic, Chronically Ill - Head Exam Head Exam: NORMOCEPHALIC - Eye Exam Eye Exam: PERRL - ENT Exam ENT Exam: Mucous Membranes Dry - Neck Exam Neck Exam: absent: Lymphadenopathy - Respiratory Exam Respiratory Exam: Decreased Breath Sounds - Cardiovascular Exam Cardiovascular Exam: REGULAR RHYTHM - GI/Abdominal Exam GI & Abdominal Exam: Distended, Soft - Rectal Exam Rectal Exam: Deferred - Exam Exam: NORMAL INSPECTION Assessment and Plan (1) Abdominal pain Status: Acute (2) Fever Status: Acute (3) Tubo-ovarian abscess Status: Acute - Assessment and Plan (Free Text) Assessment: on lovenox for possible pelvic vein thrombosis IV antibiotics in progress + coag neg staph from wound on Vanco / Merrem if fever continues would repeat CT abd / pelvis will check vanco levels
--- NOTE | 2017-06-21 13:41 | CP.PCM.PN ---
Subjective - Date & Time of Evaluation Date of Evaluation: 06/21/17 Time of Evaluation: 09:00 - Subjective Subjective: Medicine Note for Hospitalist Service- Dr. Zaragoza Patient was seen and examined at bedside. Patient reports she feels okay, still feverish with some mild abdominal pain at surgical site. Denied any fever, chills, headaches, chest pain, SOB, n/v/d/c, or urinary symptoms. Objective - Vital Signs/Intake and Output Vital Signs (last 24 hours): Temp Pulse Resp BP Pulse Ox 97.9 F 92 H 18 130/74 97 06/21/17 08:00 06/21/17 08:00 06/21/17 08:00 06/21/17 08:00 06/21/17 08:00 - Medications Medications: Current Medications Acetaminophen (Tylenol 325mg Tab) 650 mg PO Q6 PRN PRN Reason: Pain, Mild (1-3) Last Admin: 06/21/17 13:20 Dose: 650 mg Enoxaparin Sodium (Lovenox) 65 mg SC Q12H [facility] Last Admin: 06/21/17 11:26 Dose: 65 mg Sodium Chloride (Sodium Chloride 0.9%) 1,000 mls @ 100 mls/hr IV .Q10H [facility] Last Admin: 06/21/17 09:00 Dose: 100 mls/hr Vancomycin/Sodium Chloride (Vancomycin 1 Gm/Ns 200 Ml) 1 gm in 200 mls @ 133.333 mls/hr IVPB Q12H [facility] Stop: 06/25/17 16:31 Last Admin: 06/21/17 03:45 Dose: 133.333 mls/hr Meropenem 1 gm/ Sodium (Chloride) 100 mls @ 100 mls/hr IVPB Q8H [facility] Last Admin: 06/21/17 11:24 Dose: 100 mls/hr Ibuprofen (Motrin Tab) 400 mg PO Q6H PRN PRN Reason: Pain, Mild (1-3) Last Admin: 06/21/17 11:15 Dose: 400 mg Lactobacillus Acidophilus (Bacid Acidophilus) 1 cap PO BID [facility] Last Admin: 06/21/17 11:24 Dose: 1 cap Ondansetron HCl (Zofran Inj) 4 mg IVP Q6H PRN PRN Reason: Nausea/Vomiting Last Admin: 06/21/17 04:20 Dose: 4 mg Oxycodone HCl (Oxycodone Immediate Release Tab) 5 mg PO Q6 PRN PRN Reason: Pain, moderate (4-7) Last Admin: 06/21/17 00:32 Dose: 5 mg Simethicone (Mylicon Chew Tab) 80 mg PO Q8 [facility] Last Admin: 06/21/17 13:21 Dose: 80 mg - Labs Labs: 06/21/17 07:05 06/21/17 07:05 PT 13.9 SECONDS (9.7-12.2) H 06/20/17 08:42 INR 1.2 06/20/17 08:42 APTT 34 SECONDS (21-34) 06/20/17 08:42 - Additional Findings Additional findings: - Constitutional Appears: No Acute Distress - Head Exam Head Exam: NORMAL INSPECTION, NORMOCEPHALIC - Eye Exam Eye Exam: EOMI, Normal appearance - ENT Exam ENT Exam: Mucous Membranes Moist - Respiratory Exam Respiratory Exam: Clear to Auscultation Bilateral, NORMAL BREATHING PATTERN. absent: Decreased Breath Sounds, Wheezes - Cardiovascular Exam Cardiovascular Exam: REGULAR RHYTHM, RRR, +S1, +S2 - GI/Abdominal Exam GI & Abdominal Exam: Distended, Normal Bowel Sounds, Soft, Tenderness (LLQ; surgical incision site c/d/i; noman in place ) - Rectal Exam Rectal Exam: Deferred - Extremities Exam Extremities exam: Positive for: normal inspection, pedal pulses present. Negative for: calf tenderness, pedal edema, tenderness - Neurological Exam Neurological exam: Alert, CN II-XII Intact, Oriented x3 - Psychiatric Exam Psychiatric exam: Normal Affect, Normal Mood - Skin Skin Exam: Dry, Intact, Normal Color, Warm Assessment and Plan - Assessment and Plan (Free Text) Plan: Fever Tubo-ovarian Abscess, Concerns for PID, Retained IUD S/P Ex Lap, Excision of Abscess, Left Salpingoopherectomy with IUD removal 06/17 ID Consulted - Dr. House- help appreciated Febrile throughout admission, TMax 104.3 Tachycardia Need to rule out infectious vs malignancy vs dvt/ PE vs drug induced Labs: BC 06/14/17 - no growth to date UC 06/14/17- no growth to date Stool studies - no growth Abscess wound culture - no growth to date Repeat BC 06/19/17 - no growth Repeat UC - 06/19/17- yeast Lactate level - low, ESR and CRP- elevated, LDH- normal, cdiff- negative Procal- elevated D-Dimer - elevated 3000 F/U ECHO F/U REPEAT BC - done with fever Imaging: CTA: NEGATIVE PE CT Abdomen/Pelvis (06/14): 1. Multiloculated cystic mass noted within the left adnexa with a maximum diameter 6.5 cm. Differential diagnostic considerations include complex functional cyst, tubo-ovarian abscess or cystic neoplasm. Pelvic ultrasound might be considered for more definitive characterization. Transvaginal US (06/14): The left ovary is enlarged and there is a 6.7 x 4.3 x 5.2 cm tubular multilocular complex cystic mass in the left adnexa. The dominant cystic component measures 3.1 x 3.2 x [address] Chest/ab/pel (06/18): 1. Postsurgical changes in the pelvis. 2. No evidence of abscess. Venous Dopplers UE and LE - negative for DVT Meds: NS @ 100cc/hr Changed to Vanco 1 gram Q12 Meropenem 1 gram Q8H started 06/20/17 Discontinued: (Doxycycline 100mg IVP Q12 started 06/16 DC 06/20/17, Cefoxitin 2 gram IVP Q8H started 06/16 DC 06/20/17) Tylenol 650mg PO Q6H x 4 doses, then PRN Given Diflucan 150mg x 1 dose, Diflucan 100mg PO daily x 4 days Transaminitis Hepatitis Panel: Negative Will continue to monitor Prophylactic Measures DVT: Lovenox 65mg SC Q12 DW Dr. Villagomez, Mary Pedro DO, PGY-1
--- NOTE | 2017-06-21 17:55 | CP.PCM.PN ---
Subjective - Date & Time of Evaluation Date of Evaluation: 06/21/17 Time of Evaluation: 07:00 - Subjective Subjective: pt reports feeling better expcet when she gets fever. dneis any nause, vmitng cp , sob, reprots aomina pain mprovmein Objective - Vital Signs/Intake and Output Vital Signs (last 24 hours): Temp Pulse Resp BP Pulse Ox 98.3 F 69 20 109/74 100 06/21/17 16:00 06/21/17 16:00 06/21/17 16:00 06/21/17 16:00 06/21/17 16:00 - Medications Medications: Current Medications Acetaminophen (Tylenol 325mg Tab) 650 mg PO Q6 PRN PRN Reason: Pain, Mild (1-3) Last Admin: 06/21/17 13:20 Dose: 650 mg Enoxaparin Sodium (Lovenox) 65 mg SC Q12H [facility] Last Admin: 06/21/17 11:26 Dose: 65 mg Fluconazole (Diflucan) 150 mg PO DAILY [facility] PRN Reason: Protocol Stop: 06/22/17 10:01 Sodium Chloride (Sodium Chloride 0.9%) 1,000 mls @ 100 mls/hr IV .Q10H [facility] Last Admin: 06/21/17 09:00 Dose: 100 mls/hr Vancomycin/Sodium Chloride (Vancomycin 1 Gm/Ns 200 Ml) 1 gm in 200 mls @ 133.333 mls/hr IVPB Q12H [facility] Stop: 06/25/17 16:31 Last Admin: 06/21/17 03:45 Dose: 133.333 mls/hr Meropenem 1 gm/ Sodium (Chloride) 100 mls @ 100 mls/hr IVPB Q8H [facility] Last Admin: 06/21/17 11:24 Dose: 100 mls/hr Ibuprofen (Motrin Tab) 400 mg PO Q6H PRN PRN Reason: Pain, Mild (1-3) Last Admin: 06/21/17 11:15 Dose: 400 mg Lactobacillus Acidophilus (Bacid Acidophilus) 1 cap PO BID [facility] Last Admin: 06/21/17 11:24 Dose: 1 cap Ondansetron HCl (Zofran Inj) 4 mg IVP Q6H PRN PRN Reason: Nausea/Vomiting Last Admin: 06/21/17 04:20 Dose: 4 mg Oxycodone HCl (Oxycodone Immediate Release Tab) 5 mg PO Q6 PRN PRN Reason: Pain, moderate (4-7) Last Admin: 06/21/17 16:00 Dose: 5 mg Simethicone (Mylicon Chew Tab) 80 mg PO Q8 [facility] Last Admin: 06/21/17 13:21 Dose: 80 mg - Labs Labs: 06/21/17 07:05 06/21/17 07:05 PT 13.9 SECONDS (9.7-12.2) H 06/20/17 08:42 INR 1.2 06/20/17 08:42 APTT 34 SECONDS (21-34) 06/20/17 08:42 - Head Exam Head Exam: ATRAUMATIC, NORMAL INSPECTION - Eye Exam Eye Exam: EOMI - ENT Exam ENT Exam: Mucous Membranes Moist - Neck Exam Neck Exam: Full ROM - Respiratory Exam Respiratory Exam: Clear to Ausculation Bilateral, NORMAL BREATHING PATTERN - Cardiovascular Exam Cardiovascular Exam: REGULAR RHYTHM, +S1, +S2 - GI/Abdominal Exam GI & Abdominal Exam: Soft, Normal Bowel Sounds Additional comments: non tender no guaridng, no reobud, tendnere, no rigidty, +BS Incson c/d/i healing wlel - Exam External exam: NORMAL EXTERNAL EXAM - Back Exam Back Exam: NORMAL INSPECTION - Neurological Exam Neurological Exam: CN II-XII Intact, Normal Gait - Psychiatric Exam Psychiatric exam: Normal Affect, Normal Mood Assessment and Plan (1) Abdominal pain Status: Acute (2) Fever Status: Acute (3) Tubo-ovarian abscess Assessment & Plan: s/p Ex Lap TOA exicsion iud removal POD #4 with recurrent fever suspcion for spetic pelvic thrombophleits -Lovenox 65mg sub q 12 hours -f/u stat CT Scan A/P IV/PO contrast -s/p Medicine consut appreciate -s/p ID conslut appreciate: on Vancomyin, merropenum -f/u repat blood cx -f/u echo -s/p dopplers wnl -daily labs -routine postop managment Status: Acute
[2017-06-21] MEDS ORDERED: Iodixanol 320 MG/ML 100 ML BOTTLE IV ONE (18:07)
[2017-06-21] MEDS ORDERED: Iohexol 240 (50 ml) PO ONE (18:15)
[2017-06-22] MEDS: Meropenem 1 GM in Sodium Chloride 0.9% 100 ML IVPB SCH ×2 (02:07→10:04)
[2017-06-22] MEDS: Vancomycin 1 gm/NS 200 ml 1 GM/200 ML BAG IVPB SCH (04:56)
[2017-06-22] MEDS ORDERED: Lactated Ringer's 1,000 ML IV SCH ×2 (06:00→12:15)
[2017-06-22 08:10] VITALS: TEMP 98.9
[2017-06-22 08:11] LABS: BASO % 0.6 % (0.0-2.0); EOS # 0.2 K/uL (0.0-0.7); EOS % 3.4 % (0.0-4.0); HEMOGLOBIN 8.5 g/dL (11.0-16.0); LYMPH % 16.9 % (20.0-40.0); MEAN CELL VOLUME 81.5 fL (81.0-99.0); MEAN CORPUSCULAR HEMOGLOBIN 27.6 pg (27.0-31.0); MEAN CORPUSCULAR HGB CONC 33.9 g/dL (33.0-37.0); MEAN PLATELET VOLUME 7.5 fL (7.2-11.7); MONO # 0.4 K/uL (0.0-0.8); MONO % 6.3 % (0.0-10.0); NEUT # 4.3 K/uL (1.8-7.0); NEUT % 72.8 % (50.0-75.0); RBC 3.09 Mil/uL (3.80-5.20); RED CELL DISTRIBUTION WIDTH 13.3 % (11.5-14.5); WHITE BLOOD COUNT 5.9 K/uL (4.8-10.8)
[2017-06-22 08:22] LABS: ALB/GLOB RATIO 0.8 (1.0-2.1); ALBUMIN 2.6 g/dL (3.5-5.0); ALT/SGPT 73 U/L (9-52); AST/SGOT 71 U/L (14-36); BLOOD UREA NITROGEN 4 mg/dL (7-17); CALCIUM 7.7 mg/dl (8.6-10.4); GFR AFRICAN-AMERICAN > 60; GFR NON-AFRICAN AMERICAN > 60; MAGNESIUM 2.1 mg/dL (1.6-2.3)
[2017-06-22] MEDS: Enoxaparin 80 mg Syringe SC SCH (10:01)
[2017-06-22] MEDS: Lactobacillus Acidophilus 500 MU Cap PO SCH (10:07)
[2017-06-22] MEDS: oxyCODONE 5 mg Immediate Release Tab PO PRN ×2 (10:30→17:57)
[2017-06-22] MEDS: Simethicone 80 mg Chewtab PO SCH ×3 (11:29→17:57)
--- NOTE | 2017-06-22 13:15 | CT ---
CT abdomen and pelvis with IV contrast Indication: TOA status post excision with recurrent fever, rule out thrombophlebitis Technique: Contiguous axial images of the abdomen and pelvis. Coronal and Sagittal reformats generated and reviewed. Oral and IV contrast were administered. 100 mL Visipaque IV. This CT exam was performed using 1 or more of the following dose reduction techniques: Automated exposure control, adjustment of the MAA and/or kV according to patient size, and/or use of iterative reconstruction technique. Radiation dose: Total exam DLP = 366.48 MGy-cm. Comparison: CT chest, abdomen, and pelvis performed 06/18/17 Findings: No visible consolidation, pleural effusion, or pneumothorax. The liver, spleen, pancreas, adrenal glands, and gallbladder appear unremarkable. The kidneys enhance symmetrically. Mild bilateral pelvic caliectasis suspected secondary to inflammatory process within the pelvis. Discrete fluid collection/abscess within the pelvis adjacent to the sigmoid colon containing air measures approximately 3.6 cm (series 601, image 65). Mild reactive bowel wall thickening of the adjacent sigmoid loops. Fluid-filled distended ascending and transverse colon, possibly ileus. No evidence of small-bowel obstruction. The stomach is incompletely distended. Complex collections are noted within the peritoneal cavity consistent with abscess, largest within the right clara pelvic sidewall measuring approximately 2.7 x 1.9 cm (series 2, image 59). One additional fluid collection noted within the cul-de-sac measuring approximately 4 x 3 cm. Small extraluminal air collections noted in close proximity to the sigmoid colon (series 3, images 113, 116). Uterus is present. The urinary bladder appears unremarkable. Post surgical noman, lower anterior abdominal soft tissues. Adjacent stranding edema consistent with recent postsurgical state. Small foci of air noted within the subcutaneous soft tissues (for example series 3, image 112). Small fat containing paraumbilical hernia. No acute osseous abnormality is detected. Impression: Multiloculated fluid collections consistent with postoperative abscesses as above. Largest collection measures approximately 4 cm in the region of the cul-de-sac. Abdominal wall inflammatory changes including air and fluid may represent postoperative status however developing an abscess cannot be entirely excluded. Mild reactive thickening involving the sigmoid colon close proximity to postsurgical site. Extraluminal foci of air within the pelvis. Additional findings as above. Preliminary impression was provided by virtual radiologic. Findings were discussed by Dr. Dash with Dr. Osvaldo Johnson on 06/21/17 at 1046 pm.
--- NOTE | 2017-06-22 14:06 | CP.PCM.PN ---
Subjective - Date & Time of Evaluation Date of Evaluation: 06/22/17 Time of Evaluation: 13:30 - Subjective Subjective: pt seen adn examiend and reprots pain is feeling better adn requesting dichrage. pt afebrile x 24 hours Pt dneis any fever, chills, nause, vomting, CP, SOB. pt is ambtuign, normal urinary and bowel movmeents. Last temp 1pm 06/21/17 Objective - Vital Signs/Intake and Output Vital Signs (last 24 hours): Temp Pulse Resp BP Pulse Ox 98.9 F 85 18 95/65 L 97 06/22/17 08:00 06/22/17 08:00 06/22/17 08:00 06/22/17 08:00 06/22/17 08:00 Intake and Output: 06/22/17 06/22/17 06:59 18:59 Intake Total 100 Balance 100 - Medications Medications: Current Medications Acetaminophen (Tylenol 325mg Tab) 650 mg PO Q6 PRN PRN Reason: Pain, Mild (1-3) Last Admin: 06/21/17 19:30 Dose: 650 mg Enoxaparin Sodium (Lovenox) 65 mg SC Q12H [facility] Last Admin: 06/22/17 10:01 Dose: Not Given Fluconazole (Diflucan) 100 mg PO DAILY [facility] PRN Reason: Protocol Stop: 06/29/17 10:01 Last Admin: 06/22/17 10:26 Dose: 100 mg Sodium Chloride (Sodium Chloride 0.9%) 1,000 mls @ 100 mls/hr IV .Q10H [facility] Last Admin: 06/21/17 19:35 Dose: 100 mls/hr Vancomycin/Sodium Chloride (Vancomycin 1 Gm/Ns 200 Ml) 1 gm in 200 mls @ 133.333 mls/hr IVPB Q12H [facility] Stop: 06/25/17 16:31 Last Admin: 06/22/17 04:56 Dose: 133.333 mls/hr Meropenem 1 gm/ Sodium (Chloride) 100 mls @ 100 mls/hr IVPB Q8H [facility] Last Admin: 06/22/17 10:04 Dose: 100 mls/hr Lactated Ringer's (Lactated Ringer's) 1,000 mls @ 100 mls/hr IV .Q10H [facility] Ibuprofen (Motrin Tab) 400 mg PO Q6H PRN PRN Reason: Pain, Mild (1-3) Last Admin: 06/22/17 06:05 Dose: 400 mg Lactobacillus Acidophilus (Bacid Acidophilus) 1 cap PO BID [facility] Last Admin: 06/22/17 10:07 Dose: 1 cap Ondansetron HCl (Zofran Inj) 4 mg IVP Q6H PRN PRN Reason: Nausea/Vomiting Last Admin: 06/21/17 04:20 Dose: 4 mg Oxycodone HCl (Oxycodone Immediate Release Tab) 5 mg PO Q6 PRN PRN Reason: Pain, moderate (4-7) Last Admin: 06/22/17 10:30 Dose: 5 mg Simethicone (Mylicon Chew Tab) 80 mg PO Q8 [facility] Last Admin: 06/22/17 11:29 Dose: Not Given - Labs Labs: 06/22/17 07:55 06/22/17 07:55 PT 13.9 SECONDS (9.7-12.2) H 06/20/17 08:42 INR 1.2 06/20/17 08:42 APTT 34 SECONDS (21-34) 06/20/17 08:42 - Constitutional Appears: Well, Non-toxic - Head Exam Head Exam: ATRAUMATIC, NORMAL INSPECTION - Eye Exam Eye Exam: EOMI Pupil Exam: NORMAL ACCOMODATION - Respiratory Exam Respiratory Exam: Clear to Ausculation Bilateral, NORMAL BREATHING PATTERN - Cardiovascular Exam Cardiovascular Exam: REGULAR RHYTHM, +S1, +S2 - GI/Abdominal Exam GI & Abdominal Exam: Soft, Normal Bowel Sounds Additional comments: non tender, no guarding, no rebound tendnerr, no rigidty, incsion c/d//i noman intact no vaganl bleeding - Extremities Exam Extremities Exam: Normal Capillary Refill, Normal Inspection Additional comments: negative wander's sign - Back Exam Back Exam: NORMAL INSPECTION - Neurological Exam Neurological Exam: Alert, Awake, CN II-XII Intact, Normal Gait - Psychiatric Exam Psychiatric exam: Normal Affect, Normal Mood - Skin Skin Exam: Dry, Intact, Normal Color Assessment and Plan (1) Abdominal pain Status: Acute (2) Fever Status: Acute (3) Tubo-ovarian abscess Assessment & Plan: s/p Ex Lap TOA remvoal POD #5 requesting dc home, currently stable, afebrile x 24 hours -s/p IV anbitics -s/p IR Consult -s/p Surgical drainage -s/p ID consult -s/p Medicone consult -s/p CXR, blood/urine cx, absecess cx, dopplers wnl -REpeat CT Scan possible 4cm collection, higher supscion for postrugical changes -will d/c home f/u 06/23/17, staple removal, repat CT Scan 1 week if stable precaution given Status: Acute
--- NOTE | 2017-06-22 14:16 | CP.PCM.DIS ---
Provider - Provider Date of Admission: 06/14/17 19:59 Attending physician: Doris Johnson MD Time Spent in preparation of Discharge (in minutes): 40 Diagnosis - Discharge Diagnosis (1) Abdominal pain Status: Acute Priority: Medium (2) Fever Status: Acute (3) Tubo-ovarian abscess Status: Acute Hospital Course - Lab Results Lab Results: Micro Results 06/19/17 19:30 Blood Blood Culture - Preliminary NO GROWTH AFTER 48 HOURS 06/19/17 19:10 Urine,Clean Catch Urine Culture - Final Yeast Species 06/19/17 19:10 Stool Stool Culture - Final NO SALMONELLA, SHIGELLA OR CAMPYLOBACTER ISOLATED. 06/17/17 Unknown Abscess - Abscess Gram Stain - Final 06/17/17 Unknown Abscess - Abscess Wound Culture - Final Coagulase Neg Staphylococcus 06/17/17 Unknown Abdomen Gram Stain - Final 06/17/17 Unknown Abdomen Wound Culture - Final Coagulase Neg Staphylococcus 06/14/17 16:20 Blood Blood Culture - Final NO GROWTH AFTER 5 DAYS 06/14/17 16:20 Blood Gram Stain - Final TEST NOT PERFORMED 06/14/17 16:20 Blood Blood Culture - Final NO GROWTH AFTER 5 DAYS 06/14/17 Unknown Urine Urine Culture - Final No Growth (<1,000 CFU/ML) Most Recent Lab Values WBC 5.9 K/uL (4.8-10.8) 06/22/17 07:55 RBC 3.09 Mil/uL (3.80-5.20) L 06/22/17 07:55 Hgb 8.5 g/dL (11.0-16.0) L 06/22/17 07:55 Hct 25.1 % (34.0-47.0) L 06/22/17 07:55 MCV 81.5 fL (81.0-99.0) 06/22/17 07:55 MCH 27.6 pg (27.0-31.0) 06/22/17 07:55 MCHC 33.9 g/dL (33.0-37.0) 06/22/17 07:55 RDW 13.3 % (11.5-14.5) 06/22/17 07:55 Plt Count 501 K/uL (130-400) H 06/22/17 07:55 MPV 7.5 fL (7.2-11.7) 06/22/17 07:55 Neut % (Auto) 72.8 % (50.0-75.0) 06/22/17 07:55 Lymph % (Auto) 16.9 % (20.0-40.0) L 06/22/17 07:55 Leslie % (Auto) 6.3 % (0.0-10.0) 06/22/17 07:55 Eos % (Auto) 3.4 % (0.0-4.0) 06/22/17 07:55 Baso % (Auto) 0.6 % (0.0-2.0) 06/22/17 07:55 Neut # (Auto) 4.3 K/uL (1.8-7.0) 06/22/17 07:55 Lymph # (Auto) 1.0 K/uL (1.0-4.3) 06/22/17 07:55 Leslie # (Auto) 0.4 K/uL (0.0-0.8) 06/22/17 07:55 Eos # (Auto) 0.2 K/uL (0.0-0.7) 06/22/17 07:55 Baso # (Auto) 0.0 K/uL (0.0-0.2) 06/22/17 07:55 Neutrophils % (Manual) 86 % (50-75) H 06/18/17 22:08 Band Neutrophils % 2 % (0-2) 06/18/17 22:08 Lymphocytes % (Manual) 10 % (20-40) L 06/18/17 22:08 Monocytes % (Manual) 2 % (0-10) 06/18/17 22:08 Eosinophils % (Manual) 1 % (0-4) 06/15/17 11:32 Platelet Estimate Slightly increased (NORMAL) H 06/18/17 22:08 RBC Morphology Normal 06/15/17 11:32 Hypochromasia (manual) Slight 06/18/17 22:08 Poikilocytosis (manual Slight 06/18/17 22:08 Anisocytosis (manual) Slight 06/18/17 22:08 ESR 97 mm/hr (0-20) H 06/19/17 19:30 PT 13.9 SECONDS (9.7-12.2) H 06/20/17 08:42 INR 1.2 06/20/17 08:42 APTT 34 SECONDS (21-34) 06/20/17 08:42 D-Dimer, Quantitative 2907 ng/mlDDU (0-243) H 06/19/17 19:30 pO2 34 mm/Hg (30-55) 06/14/17 16:50 VBG pH 7.44 (7.32-7.43) H 06/14/17 16:50 VBG pCO2 36 mmHg (40-60) L 06/14/17 16:50 VBG HCO3 24.6 mmol/L 06/14/17 16:50 VBG Total CO2 25.6 mmol/L (22-28) 06/14/17 16:50 VBG O2 Sat (Calc) 68.9 % (40-65) H 06/14/17 16:50 VBG Base Excess 0.6 mmol/L (0.0-2.0) 06/14/17 16:50 VBG Potassium 4.0 mmol/L (3.6-5.2) 06/14/17 16:50 Sodium 136.0 mmol/l (132-148) 06/14/17 16:50 Chloride 105.0 mmol/L (98-107) 06/14/17 16:50 Glucose 103 mg/dl (65-105) 06/14/17 16:50 Lactate 1.0 mmol/L (0.7-2.1) 06/14/17 16:50 Sodium 139 mmol/L (132-148) 06/22/17 07:55 Potassium 3.7 mmol/L (3.6-5.2) 06/22/17 07:55 Chloride 101 mmol/L (98-107) 06/22/17 07:55 Carbon Dioxide 27 mmol/L (22-30) 06/22/17 07:55 Anion Gap 14 (10-20) 06/22/17 07:55 BUN 4 mg/dL (7-17) L 06/22/17 07:55 Creatinine 0.5 mg/dL (0.7-1.2) L 06/22/17 07:55 Est GFR ( Amer) > 60 06/22/17 07:55 Est GFR (Non-Af Amer) > 60 06/22/17 07:55 Random Glucose 96 mg/dL (65-105) 06/22/17 07:55 Lactic Acid 1.1 mmol/L (0.7-2.1) 06/19/17 19:32 Calcium 7.7 mg/dl (8.6-10.4) L 06/22/17 07:55 Phosphorus 3.5 mg/dL (2.5-4.5) 06/22/17 07:55 Magnesium 2.1 mg/dL (1.6-2.3) 06/22/17 07:55 Total Bilirubin 0.2 mg/dL (0.2-1.3) 06/22/17 07:55 AST 71 U/L (14-36) H 06/22/17 07:55 ALT 73 U/L (9-52) H 06/22/17 07:55 Alkaline Phosphatase 74 U/L (38-126) 06/22/17 07:55 Lactate Dehydrogenase 571 U/L (313-618) 06/19/17 19:30 C-React Prot High Sens > 15.00 mg/L (1.00-3.00) H 06/19/17 19:30 Total Protein 6.0 g/dL (6.3-8.3) L 06/22/17 07:55 Albumin 2.6 g/dL (3.5-5.0) L 06/22/17 07:55 Globulin 3.4 gm/dL (2.2-3.9) 06/22/17 07:55 Albumin/Globulin Ratio 0.8 (1.0-2.1) L 06/22/17 07:55 Lipase 55 U/L (23-300) 06/14/17 16:50 Carcinoembryonic Ag 0.6 ng/mL (0-3.0) 06/15/17 07:24 CA 19-9 Antigen 3.8 U/mL (0-37) 06/15/17 07:24 CA 125 Antigen 41.0 U/mL (0-35) H 06/15/17 07:24 Procalcitonin 1.40 NG/ML (0.19-0.49) H 06/19/17 19:30 Venous Blood Potassium 4.0 mmol/L (3.6-5.2) 06/14/17 16:50 Urine Color Colorless (YELLOW) 06/19/17 20:16 Urine Clarity Clear (Clear) 06/19/17 20:16 Urine pH 6.0 (5.0-8.0) 06/19/17 20:16 Ur Specific [place] 1.002 (1.003-1.030) L 06/19/17 20:16 Urine Protein Negative mg/dL (NEGATIVE) 06/19/17 20:16 Urine Glucose (UA) Normal mg/dL (Normal) 06/19/17 20:16 Urine Ketones Negative mg/dL (NEGATIVE) 06/19/17 20:16 Urine Blood Negative (NEGATIVE) 06/19/17 20:16 Urine Nitrate Negative (NEGATIVE) 06/19/17 20:16 Urine Bilirubin Negative (NEGATIVE) 06/19/17 20:16 Urine Urobilinogen Normal mg/dL (0.2-1.0) 06/19/17 20:16 Ur Leukocyte Esterase Neg Daniele/uL (Negative) 06/19/17 20:16 Urine WBC (Auto) 1 /hpf (0-5) 06/14/17 16:27 Urine RBC (Auto) < 1 /hpf (0-3) 06/19/17 20:16 Ur Squamous Epith Cells < 1 /hpf (0-5) 06/19/17 20:16 Urine Bacteria Rare (<OCC) 06/14/17 16:27 Urine HCG, Qual Negative (NEGATIVE) 06/17/17 12:37 Vancomycin Trough 9.5 ug/mL (5.0-10.0) 06/22/17 04:21 RPR Nonreactive (NONREACTIVE) 06/15/17 07:24 C.trachomatis RNA (TMA) Not detected (Not Detected) 06/15/17 08:54 C. difficile Ag & Toxin Negative (NEGATIVE) 06/20/17 09:00 Hepatitis A IgM Ab Negative (NEGATIVE) 06/15/17 07:24 Hep Bs Antigen Negative (NEGATIVE) 06/15/17 07:24 Hep B Core IgM Ab Negative (NEGATIVE) 06/15/17 07:24 Hepatitis C Antibody Negative (NEGATIVE) 06/15/17 07:24 HIV 1&2 Ag/Ab, 4th Gen Nonreactive (Nonreactive) 06/15/17 07:24 Influenza Typ A,B (EIA) Negative for flu a/b (NEGATIVE) 06/14/17 16:51 N.gonorrhoeae RNA (TMA) Not detected (Not Detected) 06/15/17 08:54 Blood Type O POSITIVE 06/22/17 07:55 Antibody Screen Negative 06/22/17 07:55 BBK History Checked Patient has bt 06/17/17 08:00 - Hospital Course Hospital Course: Admited Wednesday 06/[address] Scan 6cm left adnea IV ANtiios Gent, Clinda, WBC 18 RTEcurre fevers [place] Cx : negative s/p IR COnsutl, not able to drain s/p ID consult Cefoxtin, Doxycyline recurrent fevers Zoysn recurrent fevers OR Evluation s/p Ex LAP left alspingooophreomy , IUD removal s/p fever Anticoguation started for supscted septic pelvic thrombophelibtis s/p Medicine consult s/p dopplers wnl, s/p echo fevers s/p repeat CT Scan possible 4cm colelctin , unlikley absecess, likely absces, Radiogloty - repeat CT Scan after 1 week unless symtpoomatic needed sooner afebrile x 24 hours requesting dc stable rto tomorrow 06/23/17, precautions given Discharge Exam - Head Exam Head Exam: ATRAUMATIC, NORMAL INSPECTION - Eye Exam Eye Exam: EOMI, Normal appearance - ENT Exam ENT Exam: Mucous Membranes Moist - Respiratory Exam Respiratory Exam: Accessory Muscle Use, Clear to PA & Lateral, NORMAL BREATHING PATTERN, UNREMARKABLE - Cardiovascular Exam Cardiovascular Exam: REGULAR RHYTHM, +S1, +S2 - GI/Abdominal Exam GI & Abdominal Exam: Normal Bowel Sounds Additional comments: soft, nt , no guaridng, no reboud, tendnere, no rigidty Inciocnsc/d/i healing well stapesl intact no vagial bleeidng - Rectal Exam Rectal Exam: NORMAL INSPECTION - Extremities Exam Extremities exam: normal inspection Additional comments: negateive wander's sign - Back Exam Back exam: absent: CVA tenderness (L), CVA tenderness (R), FULL ROM, muscle spasm, NORMAL INSPECTION, paraspinal tenderness, rash noted, tenderness, vertebral tenderness - Neurological Exam Neurological exam: Alert, CN II-XII Intact, Oriented x3 - Psychiatric Exam Psychiatric exam: Normal Affect Discharge Plan - Follow Up Plan Condition: FAIR Disposition: HOME/ ROUTINE Instructions: Acute Abdominal Pain (DC), Acute Abdominal Pain (GEN), Abscess ( GEN)
--- NOTE | 2017-06-22 15:55 | CP.PCM.PN ---
Subjective - Date & Time of Evaluation Date of Evaluation: 06/22/17 Time of Evaluation: 09:00 - Subjective Subjective: Medicine Note for Hospitalist Service- Dr. Robb Johnson Patient was seen and examined at bedside. Patient reports she feels better today with mild pain at surgical site. Denied any fever, chills, headaches, chest pain, SOB, n/v/d/c, or urinary symptoms. Objective - Vital Signs/Intake and Output Vital Signs (last 24 hours): Temp Pulse Resp BP Pulse Ox 98.9 F 85 18 95/65 L 97 06/22/17 08:00 06/22/17 08:00 06/22/17 08:00 06/22/17 08:00 06/22/17 08:00 Intake and Output: 06/22/17 06/22/17 06:59 18:59 Intake Total 100 Balance 100 - Medications Medications: Current Medications Acetaminophen (Tylenol 325mg Tab) 650 mg PO Q6 PRN PRN Reason: Pain, Mild (1-3) Last Admin: 06/22/17 14:08 Dose: 650 mg Enoxaparin Sodium (Lovenox) 65 mg SC Q12H [facility] Last Admin: 06/22/17 10:01 Dose: Not Given Fluconazole (Diflucan) 100 mg PO DAILY DANIEL PRN Reason: Protocol Stop: 06/29/17 10:01 Last Admin: 06/22/17 10:26 Dose: 100 mg Sodium Chloride (Sodium Chloride 0.9%) 1,000 mls @ 100 mls/hr IV .Q10H [facility] Last Admin: 06/21/17 19:35 Dose: 100 mls/hr Vancomycin/Sodium Chloride (Vancomycin 1 Gm/Ns 200 Ml) 1 gm in 200 mls @ 133.333 mls/hr IVPB Q12H [facility] Stop: 06/25/17 16:31 Last Admin: 06/22/17 04:56 Dose: 133.333 mls/hr Meropenem 1 gm/ Sodium (Chloride) 100 mls @ 100 mls/hr IVPB Q8H [facility] Last Admin: 06/22/17 10:04 Dose: 100 mls/hr Lactated Ringer's (Lactated Ringer's) 1,000 mls @ 100 mls/hr IV .Q10H [facility] Ibuprofen (Motrin Tab) 400 mg PO Q6H PRN PRN Reason: Pain, Mild (1-3) Last Admin: 06/22/17 06:05 Dose: 400 mg Lactobacillus Acidophilus (Bacid Acidophilus) 1 cap PO BID DANIEL Last Admin: 06/22/17 10:07 Dose: 1 cap Ondansetron HCl (Zofran Inj) 4 mg IVP Q6H PRN PRN Reason: Nausea/Vomiting Last Admin: 06/21/17 04:20 Dose: 4 mg Oxycodone HCl (Oxycodone Immediate Release Tab) 5 mg PO Q6 PRN PRN Reason: Pain, moderate (4-7) Last Admin: 06/22/17 10:30 Dose: 5 mg Simethicone (Mylicon Chew Tab) 80 mg PO Q8 DANIEL Last Admin: 06/22/17 11:29 Dose: Not Given - Labs Labs: 06/22/17 07:55 06/22/17 07:55 PT 13.9 SECONDS (9.7-12.2) H 06/20/17 08:42 INR 1.2 06/20/17 08:42 APTT 34 SECONDS (21-34) 06/20/17 08:42 - Additional Findings Additional findings: - Constitutional Appears: No Acute Distress - Head Exam Head Exam: NORMAL INSPECTION, NORMOCEPHALIC - Eye Exam Eye Exam: EOMI, Normal appearance - ENT Exam ENT Exam: Mucous Membranes Moist - Respiratory Exam Respiratory Exam: Clear to Auscultation Bilateral, NORMAL BREATHING PATTERN. absent: Decreased Breath Sounds, Wheezes - Cardiovascular Exam Cardiovascular Exam: REGULAR RHYTHM, RRR, +S1, +S2 - GI/Abdominal Exam GI & Abdominal Exam: Distended, Normal Bowel Sounds, Soft, Tenderness (LLQ; surgical incision site c/d/i; noman in place ) - Rectal Exam Rectal Exam: Deferred - Extremities Exam Extremities exam: Positive for: normal inspection, pedal pulses present. Negative for: calf tenderness, pedal edema, tenderness - Neurological Exam Neurological exam: Alert, CN II-XII Intact, Oriented x3 - Psychiatric Exam Psychiatric exam: Normal Affect, Normal Mood - Skin Skin Exam: Dry, Intact, Normal Color, Warm Assessment and Plan - Assessment and Plan (Free Text) Plan: Fever Tubo-ovarian Abscess, Concerns for PID, Retained IUD S/P Ex Lap, Excision of Abscess, Left Salpingoopherectomy with IUD removal 06/17 ID Consulted - Dr. House- help appreciated Febrile throughout admission, TMax 104.3 Tachycardia Need to rule out infectious vs malignancy vs dvt/ PE vs drug induced Labs: BC 06/14/17 - no growth to date UC 06/14/17- no growth to date Stool studies - no growth Abscess wound culture - no growth to date Repeat BC 06/19/17 - no growth Repeat UC - 06/19/17- yeast Lactate level - low, ESR and CRP- elevated, LDH- normal, cdiff- negative Procal- elevated D-Dimer - elevated 3000 F/U ECHO F/U REPEAT BC - done with fever - negative to date Imaging: CTA: NEGATIVE PE CT Abdomen/Pelvis (06/14): 1. Multiloculated cystic mass noted within the left adnexa with a maximum diameter 6.5 cm. Differential diagnostic considerations include complex functional cyst, tubo-ovarian abscess or cystic neoplasm. Pelvic ultrasound might be considered for more definitive characterization. Transvaginal US (06/14): The left ovary is enlarged and there is a 6.7 x 4.3 x 5.2 cm tubular multilocular complex cystic mass in the left adnexa. The dominant cystic component measures 3.1 x 3.2 x [address] Chest/ab/pel (06/18): 1. Postsurgical changes in the pelvis. 2. No evidence of abscess. Venous Dopplers UE and LE - negative for DVT Repeat CT Scan ab/pel: Multiloculated fluid collections consistent with postoperative abscesses as above. Largest collection measures approximately 4 cm in the region of the cul-de-sac. Abdominal wall inflammatory changes including air and fluid may represent postoperative status however developing an abscess cannot be entirely excluded. Mild reactive thickening involving the sigmoid colon close proximity to postsurgical site. Extraluminal foci of air within the pelvis. Primary Attending Dr. Osvaldo Johnson spoke with Dr. Prado- too soon to tell if there is a reaccumulation or abscess forming or just post operative changes. Repeat CT Scan in 1 week or sooner if symptoms worsen. Patient has been afebrile for 24hrs. Meds: NS @ 100cc/hr Changed to Vanco 1 gram Q12 Meropenem 1 gram Q8H started 06/20/17 Discontinued: (Doxycycline 100mg IVP Q12 started 06/16 DC 06/20/17, Cefoxitin 2 gram IVP Q8H started 06/16 DC 06/20/17) Tylenol 650mg PO Q6H x 4 doses, then PRN Given Diflucan 150mg x 1 dose, Diflucan 100mg PO daily x 4 days Transaminitis Hepatitis Panel: Negative Prophylactic Measures DVT: Lovenox 65mg SC Q12 Disposition: Primary Attending Dr. Osvaldo Johnson spoke with Dr. Prado- too soon to tell if there is a reaccumulation or abscess forming or just post operative changes. Repeat CT Scan in 1 week or sooner if symptoms worsen. Patient has been afebrile for 24hrs. Thank you for the interesting consult. DW Dr. Robb Johnson, Mary Pedro DO, PGY-1
[2017-06-22 16:12] VITALS: BP 103/63; PULSE 82; RESP 20; O2SAT 100
--- NOTE | 2017-06-22 21:20 | CARD ---
APPROVED REPORT EXAM: Two-dimensional and M-mode echocardiogram with Doppler and color Doppler. Other Information Quality : [employer] : INDICATION R/O VEGETATIONS, FEVER 2D DIMENSIONS IVSd0.7 (0.7-1.1cm)LVDd4.2 (3.9-5.9cm) PWd0.7 (0.7-1.1cm)LVDs2.6 (2.5-4.0cm) FS (%) 39.3 %LVEF (%)70.2 (>50%) M-Mode DIMENSIONS RVDd1.83 (2.1-3.2cm)Left Atrium (MM)3.23 (2.5-4.0cm) IVSd0.80 (0.7-1.1cm)Aortic Root2.45 (2.2-3.7cm) LVDd3.95 (4.0-5.6cm)Aortic Cusp Exc.1.77 (1.5-2.0cm) PWd0.51 (0.7-1.1cm)FS (%) 37 % LVDs2.49 (2.0-3.8cm)LVEF (%)67 (>50%) Mitral Valve MV E Iggrifds05.5cm/sMV A Kwffxndj94.8cm/sE/A ratio1.5 TDI E/Lateral E'0.0E/Medial E'0.0 Tricuspid Valve TR Peak [id number]/sTR Peak [id number] LEFT VENTRICLE The left ventricle is normal size. There is normal left ventricular wall thickness. Left ventricle systolic function is normal. The Ejection Fraction is >70%. There is normal LV segmental wall motion. The left ventricular diastolic function is normal. RIGHT VENTRICLE The right ventricle is normal size. There is normal right ventricular wall thickness. The right ventricular systolic function is normal. ATRIA The left atrium size is normal. The right atrium size is normal. The interatrial septum is intact with no evidence for an atrial septal defect. AORTIC VALVE The aortic valve is normal in structure. No aortic regurgitation is present. There is no aortic valvular stenosis. There is no aortic valvular vegetation. MITRAL VALVE The mitral valve is normal in structure. There is no evidence of mitral valve prolapse. There is no mitral valve stenosis. There is no mitral valve regurgitation noted. TRICUSPID VALVE The tricuspid valve is normal in structure. There is trace tricuspid regurgitation. Right ventricular systolic pressure is estimated at less than 30 mmHg. There is no pulmonary hypertension. PULMONIC VALVE The pulmonic valve is not well visualized. There is no pulmonic valvular regurgitation. GREAT VESSELS The aortic root is normal in size. PERICARDIAL EFFUSION There is no significant pericardial effusion. <Conclusion> Left ventricle systolic function is normal. The Ejection Fraction is >70%. No aortic regurgitation is present. There is no mitral valve regurgitation noted. There is trace tricuspid regurgitation. There is no pulmonary hypertension. There is no pulmonic valvular regurgitation.
== END 2017-06-22 18:16 | disposition home or self-care (01) | DRG 742 ==
LOC: C.ER 13:06 → C.4M 19:59
PROVIDERS: ADMIT Obstetrics & Gynecology; ATTEND Obstetrics & Gynecology
PROC: 0UT10ZZ Resection of Left Ovary, Open Approach (ICD-10-PCS; 2017-06-17)
PROC: 0DNW0ZZ Release Peritoneum, Open Approach (ICD-10-PCS; 2017-06-17)
PROC: 0UPD0HZ Removal of Contraceptive Device from Uterus and Cervix, Open Approach (ICD-10-PCS; 2017-06-17)
PROC: 0UT60ZZ Resection of Left Fallopian Tube, Open Approach (ICD-10-PCS; principal; 2017-06-17 09:15)
DX: N70.93 Salpingitis and oophoritis, unspecified (principal); T83.89XA Other specified complication of genitourinary prosthetic devices, implants and grafts, initial encounter; N73.9 Female pelvic inflammatory disease, unspecified; Y76.2 Prosthetic and other implants, materials and accessory obstetric and gynecological devices associated with adverse incidents